=== PATIENT | male | born 1970 | race Caucasian/White ===

== ENCOUNTER 2021-04-11 17:34 | Inpatient (IN) ==
[2021-04-11] MEDS ORDERED: SODIUM CHLORIDE 0.9% 1000ML 2,000 ML IV ONE (18:11)
[2021-04-11] MEDS ORDERED: ACETAMINOPHEN 1,000 MG/100 ML VIAL IV STA (18:11)
[2021-04-11] MEDS ORDERED: guaiFENesin 600 MG TABCR PO STA (18:11)
[2021-04-11] MEDS ORDERED: dexAMETHasone**PF** 10 MG/ML VIAL IV ONE (18:11)
[2021-04-11] MEDS ORDERED: IPRATROPIUM BROMIDE/ALBUTEROL respimat INH INH STA (18:11)
--- NOTE | 2021-04-11 18:15 | Emergency Department Note ---
Impression & Plan Pneumonia due to COVID-19 virus, Hypoxia, Acute on chronic renal insufficiency ED Provider Note NAME: STACEY EDEN AGE: 51 SEX: M ARRIVES VIA: Walk-In INFORMANT: Patient, ED PROVIDER(S): Tj Davis MD CHIEF COMPLAINT: Shortness of breath. PLAN: Disposition: Admit MEDICAL DECISION MAKING: The patient is a pleasant 51-year-old gentleman presents to the department referred from [facility] urgent care after he presented there with cough congestion shortness of breath and feverishness for the past 5 days or so in the setting of being exposed to a Covid 19+ individual on 04/01. He was tested for COVID-19 but did not get the result. He had an ambulatory trial with a pulse ox that went down below 90% per the patient's report. He reports shortness of breath, intermittent nausea, loose stools. He denies chest pain, abdominal pain, headache. On arrival the patient is fatigued and uncomfortable no acute distress, afebrile with heart in the 100s, O2 saturation 90% on room air and vital signs otherwise stable. He appears clinically dry. He has a scant intermittent wheeze and is otherwise clear. EKG without overt acute ischemia. CXR shows patchy hazy airspace opacities within the bilateral mid lung zones which favors a viral pneumonia. WBC wnl but with lymphopenia to 0.4. H/H wnl. Platelets 94K. Chemistry without acidosis. Potassium 2.8 and otherwise electrolytes unremarkable. Cr. 2.27 increased from recent of 1.5 in [facility] records. LFTs with mild elevations and nonspecific. Troponin negative/undetectable. Lipase wnl. Covid-19 PCR is positive. Upon re-evaluation the patient did feel somewhat improved following IVF hydration, apap, dexamethasone, guaifenesin, Combivent. However given mild hypoxia and acute on chronic renal insufficiency agrees with plan for admission. Case was discussed with Dr. Garcia, [facility] hospitalist, who will evaluate the patient for admission. Triage Nursing notes reviewed and agree them. Prior medical records reviewed Vital Signs: reviewed and remarkable for tachycardia, hypoxia. Differential diagnosis: Reactive airway disease, pneumonia, pneumothorax, COPD, CHF, infections, cardiac ischemia, pulmonary embolism, musculoskeletal, gastrointestinal, as well as other pathologies. ER treatment provided: See below. Diagnostics interpreted by me: ECG: NSR, 94 bpm, no ectopy, no overt ST elevation or depression. Cardiac Monitoring: An order for continuous cardiac monitoring was placed and demonstrated NSR, 94 bpm, no ectopy. Laboratory studies: See below Imaging studies: See below Consultation(s): Case was discussed with Dr. Garcia, [facility] hospitalist, who will evaluate the patient for admission. HPI: The patient is a pleasant 51-year-old gentleman presents to the department referred from [facility] urgent care after he presented there with cough congestion shortness of breath and feverishness for the past 5 days or so in the setting of being exposed to a Covid 19+ individual on 04/01. He was tested for COVID-19 but did not get the result. He had an ambulatory trial with a pulse ox that went down below 90% per the patient's report. He reports shortnes s of breath, intermittent nausea, loose stools. He denies chest pain, abdominal pain, headache. ROS: See above HPI for pertinent positives & negatives. A total of 10 systems reviewed and were otherwise negative. PAST MEDICAL HISTORY:See Below PAST SURGICAL HISTORY:See Below FAMILY HISTORY:See Below SOCIAL HISTORY:See Below HOME MEDICATIONS:See Below ALLERGIES:See Below VITALS:See Below PHYSICAL EXAMINATION: GENERAL: Awake, alert, fatigued-appearing, in no distress HENT: Normocephalic, atraumatic. Oropharynx with dry mucous membranes and otherwise unremarkable. EYES: Normal conjunctiva. Sclera non-icteric. NECK: Supple. No nuchal rigidity. FROM. No JVD. RESPIRATORY: Scant intermittent wheeze and otherwise clear to auscultation. CARDIAC: Tachycardic rate, normal rhythm. Extremities warm and well perfused. Pulses equal. ABDOMEN: Soft, non-distended. No tenderness to palpation. No rebound or guarding. No masses. RECTAL: Deferred. MUSCULOSKELETAL: Chest examination reveals no tenderness. The back is symmetrical on inspection without obvious abnormality. There is no CVA tenderness to palpation. No joint edema. LOWER EXTREMITIES: Calves are equal size bilaterally and non-tender. No edema. No discoloration. NEURO: Normal sensorium. No sensory or motor deficits noted. SKIN: No rash or jaundice noted. Tj Davis MD Past Med/Surg History Medical History CKD (chronic kidney disease) Social History Smoking Status: Never smoker Second Hand Exposure: No; Do You Dip or Chew Tobacco: Yes; Tobacco Cessation Education Requested by Patient: No Hx Alcohol Use: No Hx Substance Use: No Preferred Language: Uruguayan Communication Ability: Effective Yarn Weigher Required: No Beliefs That Will Affect Care: None Current Living Situation: Family Other Information That Helps Us Care for You: No Feels Safe at Home: Yes Safety Concerns: Feels Safe At This Time Assistive Devices: Glasses Allergies Allergies Allergy/AdvReac Type Severity Reaction Status Date / Time Unable to Assess Allergy Unverified 04/11/21 20:42 Home Meds Home Medications Medication Instructions Recorded Confirmed hydrochlorothiazide 25 mg tablet 25 mg PO DAILY 04/11/21 04/11/21 lisinopril 40 mg tablet 40 mg PO DAILY 04/11/21 04/11/21 Results & Data (ED) Vital Signs Vital Signs - 24 hr 04/11/21 17:43 04/11/21 18:35 04/11/21 18:54 Temperature 37.2 C Temperature Source Temporal Artery Scan Pulse Rate 101 H 90 Pulse Rate from SpO2 Sensor Respiratory Rate 20 Respiratory Effort / Characteristics Non-Labored Spontaneous Respiratory Depth Normal Blood Pressure 102/67 Blood Pressure Mean 78 Blood Pressure Position Sitting Pulse Oximetry 91 90 90 Oxygen Delivery Method Room Air Room Air Room Air Oxygen Flow Rate Sepsis Recent Fever Within 48 Hours Yes Sepsis New/Unexplained Change in Mental Status N/A Sepsis Action Taken by Nursing No Action Required 04/11/21 19:00 04/11/21 19:30 04/11/21 20:00 Temperature Temperature Source Pulse Rate 92 H 86 84 Pulse Rate from SpO2 Sensor 92 H 86 85 Respiratory Rate 23 21 22 Respiratory Effort / Characteristics Respiratory Depth Blood Pressure 105/66 114/64 103/60 Blood Pressure Mean 79 80 74 Blood Pressure Position Pulse Oximetry 90 90 91 Oxygen Delivery Method Oxygen Flow Rate Sepsis Recent Fever Within 48 Hours Sepsis New/Unexplained Change in Mental Status Sepsis Action Taken by Nursing 04/11/21 20:30 04/11/21 21:00 04/11/21 21:30 Temperature Temperature Source Pulse Rate 81 80 76 Pulse Rate from SpO2 Sensor 81 80 76 Respiratory Rate 18 18 18 Respiratory Effort / Characteristics Respiratory Depth Blood Pressure 114/63 126/75 120/70 Blood Pressure Mean 80 92 86 Blood Pressure Position Pulse Oximetry 90 94 92 Oxygen Delivery Method Nasal Cannula Nasal Cannula Nasal Cannula Oxygen Flow Rate 2 2 3 Sepsis Recent Fever Within 48 Hours Sepsis New/Unexplained Change in Mental Status Sepsis Action Taken by Nursing 04/11/21 22:00 04/11/21 22:30 04/11/21 22:33 Temperature 36.5 C Temperature Source Oral Pulse Rate 70 69 Pulse Rate from SpO2 Sensor 71 70 Respiratory Rate 19 20 Respiratory Effort / Characteristics Respiratory Depth Blood Pressure 119/82 119/69 Blood Pressure Mean 94 85 Blood Pressure Position Pulse Oximetry 94 94 Oxygen Delivery Method Nasal Cannula Nasal Cannula Oxygen Flow Rate 3 3 Sepsis Recent Fever Within 48 Hours Sepsis New/Unexplained Change in Mental Status Sepsis Action Taken by Nursing 04/11/21 23:00 04/11/21 23:30 04/12/21 00:00 Temperature Temperature Source Pulse Rate 69 62 57 L Pulse Rate from SpO2 Sensor 68 63 57 L Respiratory Rate 15 16 15 Respiratory Effort / Characteristics Respiratory Depth Blood Pressure 110/69 116/74 99/63 L Blood Pressure Mean 82 88 75 Blood Pressure Position Pulse Oximetry 93 92 93 Oxygen Delivery Method Nasal Cannula Nasal Cannula Nasal Cannula Oxygen Flow Rate 3 3 3 Sepsis Recent Fever Within 48 Hours Sepsis New/Unexplained Change in Mental Status Sepsis Action Taken by Nursing 04/12/21 00:30 Temperature Temperature Source Pulse Rate 69 Pulse Rate from SpO2 Sensor 68 Respiratory Rate 24 Respiratory Effort / Characteristics Respiratory Depth Blood Pressure 103/68 Blood Pressure Mean 79 Blood Pressure Position Pulse Oximetry 95 Oxygen Delivery Method Nasal Cannula Oxygen Flow Rate 3 Sepsis Recent Fever Within 48 Hours Sepsis New/Unexplained Change in Mental Status Sepsis Action Taken by Nursing Laboratory Data Attestation: I reviewed the patient's lab results. Result diagrams: 04/11/21 18:40 04/11/21 18:40 Lab Results 04/11/21 04/11/21 04/11/21 Range/Units 18:40 18:40 18:40 WBC 7.10 (4.8-10.8) K/uL RBC 5.34 (4.7-6.1) M/uL Hgb 16.4 (14.0-18.0) g/dL Hct 44.9 (42-52) % MCV 84.1 (80-100) fL MCH 30.7 (25-34) pg MCHC 36.5 H (32-36) g/dL RDW Std Deviation 39.3 (36.4-46.3) fL RDW Coeff of Ruddy 13.1 (11.5-14.5) % Plt Count 94 L (130-400) K/uL MPV 11.1 H (7.4-10.4) fL Immature Gran % (Auto) 0.1 % Neut % (Auto) 88.1 % Lymph % (Auto) 5.6 % Osborne % (Auto) 6.1 % Eos % (Auto) 0.0 % Baso % (Auto) 0.1 % Neut # (Auto) 6.25 (1.4-6.5) K/uL Lymph # (Auto) 0.40 L (1.2-3.4) K/uL Osborne # (Auto) 0.43 (0.11-0.59) K/uL Eos # (Auto) 0.00 (0-0.5) K/uL Baso # (Auto) 0.01 (0-0.2) K/uL Immature Gran # (Auto) 0.01 (0.00-0.02) K/uL Platelet Estimate Decreased L (Normal) Sodium 132 L (136-145) mmol/L Potassium 2.8 L (3.5-5.1) mmol/L Chloride 96 L (98-107) mmol/L Carbon Dioxide 27 (21-32) mmol/L Anion Gap 9.0 (3-11) BUN 25 H (7-18) mg/dl Creatinine 2.27 H (0.6-1.4) mg/dl Est Cr Clr Drug Dosing 59.4 ml/min Est GFR ( Amer) 36.8 ml/min Est GFR (Non-Af Amer) 31.8 ml/min BUN/Creatinine Ratio 10.9 (10-20) Glucose 160 H (70-99) mg/dl Calcium 8.0 L (8.5-10.1) mg/dl Phosphorus 2.2 L (2.5-4.9) mg/dl Magnesium 1.8 (1.8-2.4) mg/dl Total Bilirubin 1.5 H (0.2-1) mg/dl Direct Bilirubin 0.9 H (0-0.2) mg/dl AST 60 H (15-37) U/L ALT 46 (12-78) U/L Alkaline Phosphatase 79 (45-117) U/L Troponin I < 0.015 (0-0.045) ng/ml Total Protein 6.4 (6.4-8.2) gm/dl Albumin 3.2 L (3.4-5.0) gm/dl Globulin 3.2 (2.5-4.0) gm/dl Albumin/Globulin Ratio 1.0 (0.9-2) Lipase 164 (73-393) U/L COVID-19 Eval Order Covid19 at [facility] SARS-CoV-2 (PCR) (Negative) 04/11/21 Range/Units 18:40 WBC (4.8-10.8) K/uL RBC (4.7-6.1) M/uL Hgb (14.0-18.0) g/dL Hct (42-52) % MCV (80-100) fL MCH (25-34) pg MCHC (32-36) g/dL RDW Std Deviation (36.4-46.3) fL RDW Coeff of Ruddy (11.5-14.5) % Plt Count (130-400) K/uL MPV (7.4-10.4) fL Immature Gran % (Auto) % Neut % (Auto) % Lymph % (Auto) % Osborne % (Auto) % Eos % (Auto) % Baso % (Auto) % Neut # (Auto) (1.4-6.5) K/uL Lymph # (Auto) (1.2-3.4) K/uL Osborne # (Auto) (0.11-0.59) K/uL Eos # (Auto) (0-0.5) K/uL Baso # (Auto) (0-0.2) K/uL Immature Gran # (Auto) (0.00-0.02) K/uL Platelet Estimate (Normal) Sodium (136-145) mmol/L Potassium (3.5-5.1) mmol/L Chloride (98-107) mmol/L Carbon Dioxide (21-32) mmol/L Anion Gap (3-11) BUN (7-18) mg/dl Creatinine (0.6-1.4) mg/dl Est Cr Clr Drug Dosing ml/min Est GFR ( Amer) ml/min Est GFR (Non-Af Amer) ml/min BUN/Creatinine Ratio (10-20) Glucose (70-99) mg/dl Calcium (8.5-10.1) mg/dl Phosphorus (2.5-4.9) mg/dl Magnesium (1.8-2.4) mg/dl Total Bilirubin (0.2-1) mg/dl Direct Bilirubin (0-0.2) mg/dl AST (15-37) U/L ALT (12-78) U/L Alkaline Phosphatase (45-117) U/L Troponin I (0-0.045) ng/ml Total Protein (6.4-8.2) gm/dl Albumin (3.4-5.0) gm/dl Globulin (2.5-4.0) gm/dl Albumin/Globulin Ratio (0.9-2) Lipase (73-393) U/L COVID-19 Eval Order SARS-CoV-2 (PCR) POSITIVE A* (Negative) Administered Medications Potassium Phosphate 24 mmol/ (Sodium Chloride) 508 mls @ 125 mls/hr IV 0130 ONE Stop: 04/12/21 05:33 Last Admin: 04/12/21 01:32 Dose: 125 mls/hr Documented by: [id number] Sodium Chloride (Nss 1000ml) 1,000 mls @ 100 mls/hr IV .Q10H WILDA Stop: 04/12/21 12:12 Last Admin: 04/12/21 02:47 Dose: 100 mls/hr Documented by: [id number] Discontinued Medications Albuterol (Ipratropium Campbell/Albuterol Respimat Inh) 2 puffs INH NOW STA Stop: 04/11/21 18:12 Last Admin: 04/11/21 18:43 Dose: 2 puffs Documented by: [id number] Dexamethasone Sodium Phosphate (DexamethasonePf 10 Mg/Ml Vial) 10 mg IV NOW ONE Stop: 04/11/21 18:12 Last Admin: 04/11/21 18:43 Dose: 10 mg Documented by: [id number] Guaifenesin (Guaifenesin 600 Mg Tabcr) 600 mg PO NOW STA Stop: 04/11/21 18:12 Last Admin: 04/11/21 18:44 Dose: 600 mg Documented by: [id number] Acetaminophen (Ofirmev) 1,000 mg in 100 mls @ 400 mls/hr IV NOW STA Stop: 04/11/21 18:25 Last Infusion: 04/11/21 20:24 Dose: 0 mls/hr Documented by: [id number] Admin: 04/11/21 18:43 Dose: 400 mls/hr Documented by: [id number] Sodium Chloride (Nss 1000ml) 2,000 mls @ 999 mls/hr IV .Q2H1M ONE Stop: 04/11/21 20:11 Last Infusion: 04/11/21 20:26 Dose: 0 mls/hr Documented by: [id number] Admin: 04/11/21 18:43 Dose: 999 mls/hr Documented by: [id number] Potassium Chloride (K Dash / Wtr) 10 meq in 100 mls @ 100 mls/hr IV Q1H WILDA Stop: 04/11/21 22:44 Last Infusion: 04/11/21 23:26 Dose: 0 mls/hr Documented by: [id number] Admin: 04/11/21 22:33 Dose: 100 mls/hr Documented by: [id number] Infusion: 04/11/21 22:22 Dose: 100 mls/hr Documented by: [id number] Admin: 04/11/21 21:22 Dose: 100 mls/hr Documented by: [id number] Remdesivir 200 mg/ Sodium (Chloride) 250 mls @ 125 mls/hr IV ONE STA; Protocol Stop: 04/12/21 02:39 Last Admin: 04/12/21 02:47 Dose: 125 mls/hr Documented by: [id number] Potassium Chloride (Potassium Chloride Crtab 20 Meq Tabcr) 40 meq PO NOW STA Stop: 04/12/21 01:07 Last Admin: 04/12/21 01:17 Dose: 40 meq Documented by: [id number] Potassium Phosphate (Potassium Phos 3 Mmol/1 Ml Infusion) 24 mmol IV NOW STA Stop: 04/12/21 01:08 Last Admin: 04/12/21 01:32 Dose: Not Given Documented by: [id number] Imaging Data Radiologist's Impression: Chest X-Ray 04/11/21 18:10 XR chest 1V portable HISTORY: Atypical Chest Pain COMPARISON: None. FINDINGS: There are low lung volumes. The cardiac silhouette is mildly enlarged. There is mild diffuse interstitial thickening with patchy hazy airspace opacities within the bilateral midlung zones. This likely represents a viral pneumonia. IMPRESSION: 1. Patchy hazy airspace opacities within the bilateral mid lung zones which favors a viral pneumonia. 2. Mild cardiomegaly. ACT 112: Negative or not required by law. Electronically signed by: Pepe Ye M.D. 04/11/2021 6:34 PM Discharge Plan Visit Data Chief Complaint: Respiratory Problems Stated Complaint: RESPIRATORY PROBLEMS, JOSE. [facility] REFERRED ED Provider: Tj Davis Discharge Problem: Pneumonia due to COVID-19 virus, Hypoxia, Acute on chronic renal insufficiency Patient Disposition: Admitted As Inpatient Discharge Instructions Interventions: ED Discharge Assessment Last Done: 04/12/21 01:18
--- NOTE | 2021-04-11 18:35 | XRay Report ---
XR chest 1V portable HISTORY: Atypical Chest Pain COMPARISON: None. FINDINGS: There are low lung volumes. The cardiac silhouette is mildly enlarged. There is mild diffus e interstitial thickening with patchy hazy airspace opacities within the bilateral midlung zones. Thi s likely represents a viral pneumonia. IMPRESSION: 1. Patchy hazy airspace opacities within the bilateral mid lung zones which favors a viral pneumonia. 2. Mild cardiomegaly. ACT 112: Negative or not required by law. Electronically signed by: Pepe Ye M.D. 04/11/2021 6:34 PM
[2021-04-11 19:30] LABS: Alanine Aminotransferase 46 U/L (12-78); Albumin Level 3.2 gm/dl (3.4-5.0); Aspartate Aminotransferase 60 U/L (15-37); BUN Creatinine Ratio 10.9 (10-20); Bilirubin Direct 0.9 mg/dl (0-0.2); Blood Urea Nitrogen 25 mg/dl (7-18); Carbon Dioxide 27 mmol/L (21-32); Chloride 96 mmol/L (98-107); Creatinine Clr Calc Pharmacy 59.4 ml/min; Est GFR (African American) 36.8 ml/min; Est GFR (Non-African American) 31.8 ml/min; Glucose 160 mg/dl (70-99); Lipase 164 U/L (73-393); Magnesium 1.8 mg/dl (1.8-2.4); Potassium 2.8 mmol/L (3.5-5.1); Sodium 132 mmol/L (136-145)
[2021-04-11 19:33] LABS: Alkaline Phosphatase 79 U/L (45-117); Bilirubin,Total 1.5 mg/dl (0.2-1); Globulin 3.2 gm/dl (2.5-4.0); Phosphorus 2.2 mg/dl (2.5-4.9); Total Protein 6.4 gm/dl (6.4-8.2); Troponin I < 0.015 ng/ml (0-0.045)
[2021-04-11 19:49] LABS: Basophils # (auto) 0.01 K/uL (0-0.2); Basophils % (auto) 0.1 %; Hematocrit (blood only) 44.9 % (42-52); Hemoglobin 16.4 g/dL (14.0-18.0); Immature Granulocytes # (auto) 0.01 K/uL (0.00-0.02); Immature Granulocytes % (auto) 0.1 %; Lymphocytes % (auto) 5.6 %; Mean Corpuscular Hemoglobin 30.7 pg (25-34); Mean Corpuscular Hgb Conc 36.5 g/dL (32-36); Mean Corpuscular Volume 84.1 fL (80-100); Mean Platelet Volume 11.1 fL (7.4-10.4); Monocytes # (auto) 0.43 K/uL (0.11-0.59); Monocytes % (auto) 6.1 %; Neutrophils # (auto) 6.25 K/uL (1.4-6.5); Neutrophils % (auto) 88.1 %; Platelet Count 94 K/uL (130-400); Platelet Estimate Decreased (Normal); RDW Coefficient of Variation 13.1 % (11.5-14.5); RDW Standard Deviation 39.3 fL (36.4-46.3); Red Blood Count 5.34 M/uL (4.7-6.1)
[2021-04-11] MEDS: POTASSIUM CHLORIDE / WTR 10 MEQ/100 ML PLCT IV SCH ×2 (21:22→22:33)
[2021-04-12] MEDS ORDERED: REMDESIVIR 200 MG in SODIUM CHLORIDE 0.9% 210 ML IV STA (00:40)
[2021-04-12] MEDS ORDERED: POTASSIUM CHLORIDE CRTAB 20 MEQ TABCR PO STA (01:06)
[2021-04-12] MEDS ORDERED: POTASSIUM PHOS 3 MMOL/1 ML INFUSION IV STA (01:07)
[2021-04-12] MEDS ORDERED: POTASSIUM PHOSPHATE 24 MMOL in SODIUM CHLORIDE 0.9% 500 ML IV ONE (01:30)
[2021-04-12] MEDS ORDERED: ALBUTEROL HFA 8 GM INHALER INH PRN (02:13)
[2021-04-12] MEDS ORDERED: SODIUM CHLORIDE 0.9% 1000ML 1,000 ML IV SCH (02:13)
[2021-04-12] MEDS ORDERED: ACETAMINOPHEN 325 MG TAB PO PRN (02:13)
[2021-04-12] MEDS ORDERED: hydrALAZINE HCL 20 MG/ML VIAL IV PRN (02:13)
[2021-04-12] MEDS ORDERED: NITROGLYCERIN SL 0.4 MG/TAB TAB SL PRN (02:13)
[2021-04-12] MEDS ORDERED: ONDANSETRON INJ 2 MG/ML 2 ML VIAL IV PRN (02:13)
--- NOTE | 2021-04-12 03:07 | History and Physical Report ---
DATE OF ADMISSION: 04/12/2021. CHIEF COMPLAINT: Shortness of breath, COVID pneumonia. HISTORY OF PRESENT ILLNESS: This is a 51-year-old male with past medical history significant for hypertension, morbid obesity, chronic kidney disease stage III, chews tobacco, history of Lyme disease, who presents with shortness of breath and found to be COVID positive. The patient states he is having symptoms since about last Friday, about 1 week ago, with fever, cough, feeling weak, poor appetite. Denies any shortness of breath or chest pain. No headaches, no abdominal pain, no nausea, no diarrhea or constipation. He went to [facility] on 04/11/2021 and he seems to be exposed because his daughter had COVID . In the [facility], he was saturating 88% to 99% and he was advised to come to the ER. In the ER, he was saturating in the low 90s and on oxygen 3 liters, he is saturating okay. He is hemodynamically stable. Afebrile here. Denies any blurred visions, no earache, no runny nose, no sore throat, no difficulty swallowing. No loss of sense of smell or taste. Normal bladder movements. ALLERGIES: No known drug allergies. PAST MEDICAL HISTORY: As mentioned above. PAST SURGICAL HISTORY: None. MEDICATIONS: The patient is on lisinopril 40 mg daily, hydrochlorothiazide 25 mg p.o. daily. FAMILY HISTORY: Mother of lung cancer; father of myocardial infarction, multiple strokes, hypertension, diabetes; brother has diabetes. SOCIAL HISTORY: , no smoking. Denies any alcohol use. No drug use. REVIEW OF SYSTEMS: As per HPI. Rest of the review of systems is negative. PHYSICAL EXAMINATION: GENERAL: The patient is morbidly obese, not in acute distress. VITAL SIGNS: Temperature 36.5, pulse 69, respiratory rate 24, blood pressure 103/68, oxygen was 90% on room air, currently 95% on 3 liters. HEENT: Pupils equal, round and reactive to light. Oral mucosa moist. NECK: No JVD, no neck masses. CARDIOVASCULAR: S1 and S2 heard. Regular rate and rhythm. No murmur, no gallop. RESPIRATORY SYSTEM: Normal AP diameter. No accessory muscle use. No wheezing, no crackles. ABDOMEN: Soft, bowel sounds present, nontender, no distention. CENTRAL NERVOUS SYSTEM: Cranial nerves II-XII grossly intact, nonfocal. EXTREMITIES: No edema, no erythema. LABORATORY DATA: WBC 7.1, hemoglobin 16.4, hematocrit 44.9, platelets 94. Sodium 132, potassium 2.8, chloride 96, bicarbonate 27, BUN 25, creatinine 2.27. Serum glucose 160, calcium 8, phosphorus 2.2, magnesium 1.8, total bilirubin 1.5, direct bilirubin 0.9, AST 60, ALT 46, alkaline phosphatase 79. Troponin I less than 0.015. Lipase 162. SARS-CoV-2 PCR positive. IMAGING DATA: Chest x-ray: Patchy hazy airspace opacities within the bilateral mid lung zone, which favors a viral pneumonia. EKG: Normal sinus rhythm at a rate of 94, no previous EKG available. ASSESSMENT AND PLAN: This is a 51-year-old male who presents with COVID pneumonia and hypoxia. 1. COVID pneumonia: Oxygen saturation in low 90s on room air, on 3 L saturating fine at 95%. Meets criteria for remdesivir and steroids. Will continue and follow the remdesivir labs. Please follow the CRP, D-dimer, ferritin, and troponin levels in the a.m. Robitussin p.r.n. Closely monitor in the med tele. 2. Acute kidney injury on chronic kidney disease stage III: Baseline creatinine around 1.4-1.5, presently with creatinine of 2.2. Holding his lisinopril and holding the hydrochlorothiazide. Getting gentle fluids. Will follow the repeat labs in a.m. 3. Hypokalemia: Will replace. 4. Hypophosphatemia: Will replace. 5. Mild elevation of total bilirubin: Will follow the repeat labs.If persistent elevation will do liver ultrasound. 6. Hypertension: Holding his lisinopril and hydrochlorothiazide. Will place on IV hydralazine p.r.n. and monitor. 7. Morbid obesity: Needs counseling.. Will also follow HbA1c levels in the a.m. 8. Thrombocytopenia: His platelets were okay in 2013, could be due to ongoing illness. Will follow the repeat labs. 9.. Deep venous thrombosis prophylaxis: Placed on Lovenox 40 mg b.i.d. as the patient is morbidly obese. Closely monitor for any bleeding and if his platelets further drop down, will hold the Lovenox. DISPOSITION: Will closely monitor in the med tele. Level 1 full code. Job ID: [id number]
[2021-04-12] MEDS: SODIUM CHLORIDE 0.9% 10ML FLUSH IV SCH (05:06)
[2021-04-12 06:06] LABS: Hemoglobin 15.8 g/dL (14.0-18.0); Immature Granulocytes # (auto) 0.01 K/uL (0.00-0.02); Immature Granulocytes % (auto) 0.2 %; Lymphocytes # (auto) 0.37 K/uL (1.2-3.4); Lymphocytes % (auto) 8.5 %; Mean Corpuscular Hemoglobin 31.4 pg (25-34); Mean Corpuscular Hgb Conc 36.7 g/dL (32-36); Mean Corpuscular Volume 85.5 fL (80-100); Mean Platelet Volume 11.2 fL (7.4-10.4); Monocytes # (auto) 0.21 K/uL (0.11-0.59); Monocytes % (auto) 4.8 %; Neutrophils # (auto) 3.77 K/uL (1.4-6.5); Neutrophils % (auto) 86.5 %; Platelet Count 100 K/uL (130-400); RDW Coefficient of Variation 13.4 % (11.5-14.5); Red Blood Count 5.03 M/uL (4.7-6.1); White Blood Count 4.36 K/uL (4.8-10.8)
[2021-04-12] MEDS: ENOXAPARIN INJ 40 MG/0.4 ML SYR SQ SCH ×2 (06:13→17:33)
[2021-04-12 06:38] LABS: Echinocytes 1+
[2021-04-12 06:45] LABS: D Dimer 980 ug/L FEU (0-500)
[2021-04-12 06:50] LABS: Alanine Aminotransferase 43 U/L (12-78); Albumin Level 2.8 gm/dl (3.4-5.0); Alkaline Phosphatase 73 U/L (45-117); Aspartate Aminotransferase 52 U/L (15-37); BUN Creatinine Ratio 12.2 (10-20); Bilirubin Direct 0.7 mg/dl (0-0.2); Bilirubin,Total 1.2 mg/dl (0.2-1); Blood Urea Nitrogen 32 mg/dl (7-18); Calcium 7.3 mg/dl (8.5-10.1); Carbon Dioxide 29 mmol/L (21-32); Chloride 101 mmol/L (98-107); Creatinine Clr Calc Pharmacy 51.9 ml/min; Est GFR (African American) 31.2 ml/min; Est GFR (Non-African American) 26.9 ml/min; Ferritin 1726.6 ng/ml (8-388); Glucose 222 mg/dl (70-99); Magnesium 2.2 mg/dl (1.8-2.4); Phosphorus 3.5 mg/dl (2.5-4.9); Potassium 4.4 mmol/L (3.5-5.1); Sodium 134 mmol/L (136-145); Total Protein 6.1 gm/dl (6.4-8.2); Troponin I < 0.015 ng/ml (0-0.045)
[2021-04-12] MEDS ORDERED: PHARMACY GLYCEMIC MGMT CONSULT PRN (15:32)
[2021-04-12] MEDS ORDERED: INSULIN HUMAN NPH SC ONE (15:45)
--- NOTE | 2021-04-12 16:39 | Hospitalist Progress Note ---
Date of Service April 12, 2021 Assessment & Plan (1) Pneumonia due to COVID-19 virus: Plan: Doing well clinically, requiring minimal oxygen today. Cont remdesivir (apparently meets GFR cutoff) and daily dexamethasone). Tolerating PO, cont supportive care. Eleveated D-dimer likely related to infection (acute phase reactact). Low risk for PE/DVT. (2) Acute on chronic renal insufficiency: Plan: Acute worsening of creatinine-Stage III CKD at baseline--base creat from 2017 is 1.5. (3) Obesity: Plan: Lifestyle modifications recommended. (4) DVT prophylaxis: Plan: Lovenox Full Code Dispo-to home when improved and off oxygen. Selena Ramires DO [facility]ist Admission and Anticipated Discharge Date Admission Date: April 12, 2021 Subjective 51 yo M with covid pneumonia Still requiring min oxygen but feels great denies any headaches, SOB, chest pain, diarrhea or other issues doing well on the steroids and antiviral therapy. ambulating, tolerating PO Review of Systems Review of Systems: All systems were reviewed and negative except as indicated in HPI above. Physical Exam Physical Exam: CONSTITUTIONAL: obese, vitals as above, generally well- appearing EYES: normal conjunctivae, no scleral icterus ENT: external ear and nose normal, MMM RESPIRATORY: clear to auscultation bilaterally, no crackles, rales or wheezes, normal respiratory effort CARDIOVASCULAR: regular rate and rhythm, S1 and 2 heard without murmurs, gallops or rubs, no JVD, no peripheral edema GASTROINTESTINAL: soft, nontender, nondistended, no guarding MUSCULOSKELETAL: strength 5/5 throughout, head is normocephalic and atraumatic, ambulatory SKIN: warm and dry NEUROLOGIC: CN 2-12 grossly intact, no sensory deficit, normal cognition, normal speech, no tremor PSYCHIATRIC: alert cooperative and oriented to person, place and time. Results & Data Results & Data ([facility]) Vital Signs (Past 12 Hours) Vital Signs Temp Pulse Pulse Resp BP Pulse Ox 04/12/21 16:00 36.9 C 84 18 121/85 96 04/12/21 15:18 80 04/12/21 11:38 36.6 C 76 18 115/71 95 04/12/21 07:36 36.4 C L 68 25 H 123/76 95 04/12/21 07:00 62 Laboratory Results Short CBC 08/18/21 08/19/21 Range/Units 18:40 05:37 WBC 7.10 4.36 L (4.8-10.8) K/uL Hgb 16.4 15.8 (14.0-18.0) g/dL Hct 44.9 43.0 (42-52) % Plt Count 94 L 100 L (130-400) K/uL BMP 04/11/21 04/12/21 18:40 05:37 Sodium 132 L 134 L Potassium 2.8 L 4.4 D Chloride 96 L 101 Carbon Dioxide 27 29 BUN 25 H 32 H Creatinine 2.27 H 2.60 H D Glucose 160 H 222 H Calcium 8.0 L 7.3 L Cardiac Enzymes 04/11/21 04/12/21 Range/Units 18:40 05:37 Troponin I < 0.015 < 0.015 (0-0.045) ng/ml Liver Function 04/11/21 04/12/21 Range/Units 18:40 05:37 Total Bilirubin 1.5 H 1.2 H (0.2-1) mg/dl Direct Bilirubin 0.9 H 0.7 H (0-0.2) mg/dl AST 60 H 52 H (15-37) U/L ALT 46 43 (12-78) U/L Alkaline Phosphatase 79 73 (45-117) U/L Albumin 3.2 L 2.8 L (3.4-5.0) gm/dl Medications Administered Current Inpatient Medications Acetaminophen (Acetaminophen 325 Mg Tab) 650 mg PO Q4H PRN PRN Reason: Pain or Fever Stop: 05/12/21 02:12 Albuterol (Albuterol Hfa 8 Gm Inhaler) 2 puffs INH Q4H PRN PRN Reason: Shortness Of Breath Or Wheezin Stop: 05/12/21 02:12 Enoxaparin Sodium (Enoxaparin Inj 40 Mg/0.4 Ml Syr) 40 mg SQ Q12H WILDA Stop: 05/12/21 05:59 Last Admin: 04/12/21 06:13 Dose: 40 mg Documented by: Guaifenesin/Codeine Phosphate (Guaifenesin/Codeine 100mg/10mg 5ml Udc) 5 ml PO Q6H PRN PRN Reason: Cough Stop: 05/12/21 02:12 Hydralazine HCl (Hydralazine Hcl 20 Mg/Ml Vial) 5 mg IV Q6H PRN PRN Reason: Hypertension Stop: 05/12/21 02:12 Remdesivir 100 mg/ Sodium (Chloride) 250 mls @ 250 mls/hr IV Q24H [facility]; Protocol Stop: 04/16/21 20:59 Dexamethasone 6 mg/ Syringe 1.5 mls @ 1 mls/min IV DAILY [facility] Stop: 04/22/21 19:59 Insulin Aspart (Insulin Aspart 100 Units/Ml 3 Ml Pen) 0 units SC ACHS [facility]; Protocol Stop: 05/12/21 16:29 Insulin Aspart (Insulin Aspart 100 Units/Ml 3 Ml Pen) 0 units SC TODAY@0000,0400 [facility]; Protocol Stop: 04/13/21 04:01 Miscellaneous Information (Pharmacy Glycemic Mgmt Consult) 1 ea N/A UD PRN PRN Reason: Consult Stop: 05/12/21 15:31 Nitroglycerin (Nitroglycerin Sl 0.4 Mg/Tab Tab) 0.4 mg SL UD PRN PRN Reason: Chest Pain Stop: 05/12/21 02:12 Ondansetron HCl (Ondansetron Inj 2 Mg/Ml 2 Ml Vial) 4 mg IV Q6H PRN PRN Reason: Nausea Stop: 05/12/21 02:12 Sodium Chloride (Sodium Chloride 0.9% 10ml Flush) 30 ml IV Q24H [facility] Stop: 04/16/21 02:14 Last Admin: 04/12/21 05:06 Dose: 30 ml Documented by:
[2021-04-12] MEDS: INSULIN ASPART 100 UNITS/ML 3 ML PEN SC SCH ×2 (17:31→20:54)
[2021-04-12] MEDS: dexAMETHasone 6 MG in SYRINGE 0 ML IV SCH (20:52)
[2021-04-13] MEDS: INSULIN ASPART 100 UNITS/ML 3 ML PEN SC SCH ×6 (00:03→20:40)
[2021-04-13] MEDS: SODIUM CHLORIDE 0.9% 10ML FLUSH IV SCH ×2 (03:28→20:41)
[2021-04-13] MEDS: ENOXAPARIN INJ 40 MG/0.4 ML SYR SQ SCH ×2 (05:30→17:52)
--- NOTE | 2021-04-13 05:33 | Electrocardiogram Report ---
Test Reason : Blood Pressure : / mmHG Vent. Rate : 094 BPM Atrial Rate : 094 BPM P-R Int : 152 ms QRS Dur : 090 ms QT Int : 348 ms P-R-T Axes : 012 -03 016 degrees QTc Int : 435 ms Normal sinus rhythm Cannot rule out Inferior infarct , age undetermined Cannot rule out Anterior infarct , age undetermined Abnormal ECG No previous ECGs available Confirmed by Benjamin Busby ([id number]) on 04/13/2021 5:32:48 AM Referred By: REFERRED SELF Confirmed By:Benjamin Busby
[2021-04-13 06:38] LABS: Creatinine Clr Calc Pharmacy 69.2 ml/min; Est GFR (Non-African American) 37.9 ml/min
[2021-04-13 06:46] LABS: Phosphorus 2.7 mg/dl (2.5-4.9)
[2021-04-13] MEDS ORDERED: Nursing to Pharmacy Communication SCH (07:45)
[2021-04-13 07:47] LABS: Estimated Average Glucose 143 mg/dl; Hemoglobin A1C 6.6 % (4.5-5.6)
[2021-04-13] MEDS ORDERED: INSULIN HUMAN NPH SC ONE (09:00)
[2021-04-13] MEDS: dexAMETHasone 6 MG in SYRINGE 0 ML IV SCH (10:14)
--- NOTE | 2021-04-13 11:40 | Pharmacy Report ---
Pharmacy Glycemic Short Note 2 - Date of Service April 13, 2021 - Glycemic Short BSG Results (Last 24 hours): 04/12/21 04/12/21 04/12/21 16:23 20:46 23:57 POC Glucose 244 H 212 H 128 H 04/13/21 04/13/21 04/13/21 03:51 07:19 11:17 POC Glucose 130 H 159 H 252 H OUTPATIENT ANTIDIABETIC REGIMEN: * None * HbA1c 6.6% on 04/13/21 ASSESSMENT: * 51 yo M not on any outpatient diabetes medications admitted on 04/11 for COVID- 19. Steroids initiated which precipitated hyperglycemia. Pharmacy consulted on 04/12 * NPH initiated late in the evening therefore only started with 0.2 units/kg * Novolog initiated at weight-based severe stress estimate with two overnight checks * BSG's have improved since yesterday * Continue above regimen, but OK to increase NPH slightly now that it is being administered with dexamethasone in the AM and AM fasting BSG was above goal range PLAN FOR INPATIENT GLYCEMIC CONTROL: * Basal insulin * NPH 40 units SC with dexamethasone x1 this AM. Will re-assess tomorrow. * Bolus insulin * NovoLog per scale ACHS or Q6hrs while NPO * Goal Range: Low 110 mg/dL - High 140 mg/dL * Correction Factor: 10 mg/dL/unit * Nutritional / Prandial insulin per carb ratio of 1 unit per 4 grams CHO consumed PLAN FOR DISCHARGE: * HbA1c indicative of diabetes. Initiation of metformin when eGFR < 45 is not recommended. Patient should follow-up as an outpatient shortly after discharge to determine best outpatient option for ongoing management.
--- NOTE | 2021-04-13 18:52 | Hospitalist Progress Note ---
Date of Service April 13, 2021 Assessment & Plan (1) Pneumonia due to COVID-19 virus: (2) Acute on chronic renal insufficiency: (3) Newly diagnosed diabetes: Plan: #. Pneumonia due to COVID-19 virus Doing well clinically, requiring minimal oxygen today. Cont remdesivir 1/4 and daily dexamethasone. Tolerating PO, cont supportive care. Eleveated D-dimer likely related to infection (acute phase reactact). Low risk for PE/DVT. #. Acute on chronic renal insufficiency: Acute worsening of creatinine Stage III CKD at baseline base creat from 2017 is 1.5. Admitting creatinine 2.27, improving, continue to follow #. Newly diagnosed diabetes mellitus #. Obesity 04/13 A1c 6.6, patient endorses family member having diabetes type 2 Continue with sliding scale while inpatient Evaluate for Metformin upon discharge We will get diabetic nurse on board Patient made aware and counseled on lifestyle modification #. DVT prophylaxis: Lovenox Full Code Dispo-to home when improved and off oxygen. Admission and Anticipated Discharge Date Admission Date: April 12, 2021 Subjective Patient was lying semiupright in bed, on 2 L nasal cannula oxygen, NAD, denies acute issues overnight. He does not feel increased shortness of breath. Patient denies any fever/headache/chills/sore throat/chest pain/cough/palpitations/belly pain/other review of symptoms. Physical Exam Physical Exam: GENERAL: Alert and oriented x3. NAD, on 2l. HEENT: No pallor, no icterus. Pupils equal, round and reactive to light. Oral mucosa moist. NECK: No JVD, no neck masses. HEART: S1 and S2 heard. Regular rate and rhythm. No murmur, no gallop. RESPIRATORY SYSTEM: Normal AP diameter. No accessory muscle use. No wheezing, no crackles. ABDOMEN: Soft, bowel sounds present, nontender, no distention. CENTRAL NERVOUS SYSTEM: Alert and oriented x3. No facial droop. Speech is clear. Obeys simple commands. Moves extremities. EXTREMITIES: No edema, no erythema seen. Results & Data Results & Data ([facility]) Vital Signs (Past 12 Hours) Vital Signs Temp Pulse Pulse Resp BP Pulse Ox 04/13/21 16:00 81 04/13/21 15:03 36.4 C L 76 18 112/73 91 04/13/21 13:00 90 04/13/21 11:19 36.9 C 75 18 161/85 H 91 04/13/21 09:30 92 04/13/21 07:53 60 04/13/21 07:21 36.8 C 73 24 143/86 H 91
[2021-04-13] MEDS: REMDESIVIR 100 MG in SODIUM CHLORIDE 0.9% 230 ML IV SCH (19:46)
[2021-04-13] MEDS: guaiFENesin/CODEINE 100MG/10MG 5ML UDC PO PRN (19:55)
[2021-04-14] MEDS ORDERED: LEVALBUTEROL HCL 1.25 MG/3 ML NEB NEB PRN (03:44)
[2021-04-14] MEDS ORDERED: FUROSEMIDE 20 MG in SYRINGE 0 ML IV ONE (04:30)
[2021-04-14] MEDS: ENOXAPARIN INJ 40 MG/0.4 ML SYR SQ SCH ×2 (05:42→17:38)
[2021-04-14 06:01] LABS: Hematocrit (blood only) 43.3 % (42-52); Hemoglobin 15.3 g/dL (14.0-18.0); Mean Corpuscular Hemoglobin 30.2 pg (25-34); Mean Corpuscular Hgb Conc 35.3 g/dL (32-36); Mean Corpuscular Volume 85.4 fL (80-100); Mean Platelet Volume 10.5 fL (7.4-10.4); Platelet Count 156 K/uL (130-400); RDW Coefficient of Variation 13.1 % (11.5-14.5); RDW Standard Deviation 41.1 fL (36.4-46.3); Red Blood Count 5.07 M/uL (4.7-6.1); White Blood Count 9.44 K/uL (4.8-10.8)
[2021-04-14 06:12] LABS: Immature Granulocytes # (auto) 0.02 K/uL (0.00-0.02); Immature Granulocytes % (auto) 0.2 %; Lymphocytes # (auto) 0.29 K/uL (1.2-3.4); Lymphocytes % (auto) 3.1 %; Monocytes # (auto) 0.86 K/uL (0.11-0.59); Monocytes % (auto) 9.1 %; Neutrophils # (auto) 8.27 K/uL (1.4-6.5); Neutrophils % (auto) 87.6 %
[2021-04-14 06:37] LABS: Alanine Aminotransferase 39 U/L (12-78); Albumin Globulin Ratio 0.9 (0.9-2); Albumin Level 2.8 gm/dl (3.4-5.0); Alkaline Phosphatase 78 U/L (45-117); Aspartate Aminotransferase 47 U/L (15-37); BUN Creatinine Ratio 20.3 (10-20); Bilirubin,Total 0.9 mg/dl (0.2-1); Blood Urea Nitrogen 32 mg/dl (7-18); C Reactive Protein 5.84 mg/dl (0-0.29); Calcium 7.9 mg/dl (8.5-10.1); Carbon Dioxide 26 mmol/L (21-32); Chloride 104 mmol/L (98-107); Creatinine Clr Calc Pharmacy 86.7 ml/min; Est GFR (African American) 57.5 ml/min; Est GFR (Non-African American) 49.6 ml/min; Globulin 3.2 gm/dl (2.5-4.0); Glucose 141 mg/dl (70-99); Magnesium 2.1 mg/dl (1.8-2.4); Phosphorus 2.5 mg/dl (2.5-4.9); Potassium 3.2 mmol/L (3.5-5.1); Sodium 137 mmol/L (136-145); Troponin I < 0.015 ng/ml (0-0.045)
[2021-04-14] MEDS ORDERED: POTASSIUM CHLORIDE CRTAB 20 MEQ TABCR PO STA (06:48)
[2021-04-14 07:13] LABS: D Dimer 540 ug/L FEU (0-500)
--- NOTE | 2021-04-14 07:28 | XRay Report ---
XR chest 1V portable CLINICAL HISTORY: hypoxia COMPARISON STUDY: Chest radiograph April 11, 2021. FINDINGS: Lung volumes are normal. There is no pneumothorax or pleural effusion. Enlargement of the c ardiac silhouette is unchanged. Bilateral airspace opacities have progressed. IMPRESSION: Progression of bilateral airspace opacities which favor viral pneumonia. ACT 112: Negative or not required by law. Electronically signed by: Jaiden Alexander M.D. 04/14/2021 7:27 AM
[2021-04-14] MEDS: dexAMETHasone 6 MG in SYRINGE 0 ML IV SCH (08:16)
[2021-04-14] MEDS: INSULIN ASPART 100 UNITS/ML 3 ML PEN SC SCH ×4 (08:17→21:41)
[2021-04-14] MEDS ORDERED: INSULIN HUMAN NPH SC SCH (09:00)
[2021-04-14] MEDS: FLUTICASONE FUROATE 100MCG 14 PUFFS/INHALER INH SCH (09:15)
[2021-04-14 12:03] LABS: Echinocytes 1+
--- NOTE | 2021-04-14 15:09 | Pharmacy Report ---
Pharmacy Glycemic Short Note 2 - Date of Service April 14, 2021 - Glycemic Short BSG Results (Last 24 hours): 04/13/21 04/13/21 04/14/21 16:16 20:28 05:34 Glucose 141 H POC Glucose 184 H 147 H 04/14/21 04/14/21 07:11 11:25 Glucose POC Glucose 139 H 231 H OUTPATIENT ANTIDIABETIC REGIMEN: * None * HbA1c 6.6% on 04/13/21 ASSESSMENT: 04/14/21 * Pt has received 106 units of insulin over the past 24hrs * 40 units of basal with NPH * 66 units of bolus with NovoLog * BSGs 130-252 mg/dl * Increase NPH and tighten CR for better glycemic control 04/13/21 * 51 yo M not on any outpatient diabetes medications admitted on 04/11 for COVID- 19. Steroids initiated which precipitated hyperglycemia. Pharmacy consulted on 04/12 * NPH initiated late in the evening therefore only started with 0.2 units/kg * Novolog initiated at weight-based severe stress estimate with two overnight checks * BSG's have improved since yesterday * Continue above regimen, but OK to increase NPH slightly now that it is being administered with dexamethasone in the AM and AM fasting BSG was above goal range PLAN FOR INPATIENT GLYCEMIC CONTROL: * Basal insulin * NPH 50 units SC daily with dexamethasone * Bolus insulin * NovoLog per scale ACHS or Q6hrs while NPO * Goal Range: Low 110 mg/dL - High 140 mg/dL * Correction Factor: 10 mg/dL/unit * Nutritional / Prandial insulin per carb ratio of 1 unit per 2 grams CHO consumed PLAN FOR DISCHARGE: * HbA1c indicative of diabetes. Initiation of metformin when eGFR < 45 is not recommended. Patient should follow-up as an outpatient shortly after discharge to determine best outpatient option for ongoing management.
--- NOTE | 2021-04-14 18:15 | Hospitalist Progress Note ---
Date of Service April 14, 2021 Assessment & Plan (1) Pneumonia due to COVID-19 virus: (2) Acute on chronic renal insufficiency: (3) Newly diagnosed diabetes: Plan: #. Pneumonia due to COVID-19 virus Had acute worsening of shortness of breath around 3 AM 04/14 requiring 12 L oxygen. CXR showed worsening bilateral pneumonia. Troponin was negative. Patient successfully weaned down to 6 L by evening today. Will get pulmonology on board. Appreciate recommendation. Cont remdesivir 2/4 and daily dexamethasone. Tolerating PO, cont supportive care. Elevated D-dimer likely related to infection (acute phase reactant). Low risk for PE/DVT. #. Acute on chronic renal insufficiency: Acute worsening of creatinine Stage III CKD at baseline base creat from 2017 is 1.5. Admitting creatinine 2.27, improving, continue to follow Creatinine close to baseline. #. Newly diagnosed diabetes mellitus #. Obesity 04/13 A1c 6.6, patient endorses family member having diabetes type 2 Continue with sliding scale while inpatient Evaluate for Metformin upon discharge when his renal function reaches his baseline. patient educator consulted Patient made aware and counseled on lifestyle modification #. DVT prophylaxis: Lovenox Full Code Dispo-to home when improved and off oxygen. Admission and Anticipated Discharge Date Admission Date: April 12, 2021 Subjective Patient was sitting up in chair, on 6 L nasal cannula oxygen, NAD, Overnight patient was short of breath and required 12 L nasal cannula oxygen. Patient denies chest pain/palpitation. Patient states improvement in his cough and color of the sputum. Patient denies any fever/headache/chills/sore throat/chest pain/palpitations/belly pain/other review of symptoms. Physical Exam Physical Exam: GENERAL: Alert and oriented x3. NAD, on 6l. HEENT: No pallor, no icterus. Pupils equal, round and reactive to light. Oral mucosa moist. NECK: No JVD, no neck masses. HEART: S1 and S2 heard. Regular rate and rhythm. No murmur, no gallop. RESPIRATORY SYSTEM: Normal AP diameter. No accessory muscle use. No wheezing, no crackles. ABDOMEN: Soft, bowel sounds present, nontender, no distention. CENTRAL NERVOUS SYSTEM: Alert and oriented x3. No facial droop. Speech is clear. Obeys simple commands. Moves extremities. EXTREMITIES: No edema, no erythema seen. Results & Data Results & Data ([facility]) Vital Signs (Past 12 Hours) Vital Signs Temp Pulse Pulse Pulse Resp BP BP 04/14/21 17:00 04/14/21 15:39 36.5 C 82 18 125/78 04/14/21 15:18 75 04/14/21 14:43 04/14/21 11:07 36.6 C 78 22 115/67 04/14/21 08:35 24 04/14/21 08:23 04/14/21 08:15 04/14/21 08:00 73 04/14/21 07:17 36.6 C 82 22 127/59 L Pulse Ox Pulse Ox Pulse Ox Pulse Ox 04/14/21 17:00 91 04/14/21 15:39 92 04/14/21 15:18 04/14/21 14:43 92 91 82 L 04/14/21 11:07 92 04/14/21 08:35 90 04/14/21 08:23 90 04/14/21 08:15 93 04/14/21 08:00 04/14/21 07:17 92
[2021-04-14] MEDS: REMDESIVIR 100 MG in SODIUM CHLORIDE 0.9% 230 ML IV SCH (20:23)
[2021-04-14] MEDS: SODIUM CHLORIDE 0.9% 10ML FLUSH IV SCH (21:36)
[2021-04-15] MEDS: ENOXAPARIN INJ 40 MG/0.4 ML SYR SQ SCH ×2 (05:44→17:55)
[2021-04-15] MEDS: guaiFENesin/CODEINE 100MG/10MG 5ML UDC PO PRN (05:44)
[2021-04-15 06:36] LABS: Hematocrit (blood only) 42.3 % (42-52); Mean Corpuscular Hemoglobin 30.5 pg (25-34); Mean Corpuscular Hgb Conc 35.5 g/dL (32-36); Mean Platelet Volume 10.4 fL (7.4-10.4); Platelet Count 195 K/uL (130-400); RDW Coefficient of Variation 13.1 % (11.5-14.5); RDW Standard Deviation 41.5 fL (36.4-46.3); Red Blood Count 4.92 M/uL (4.7-6.1); White Blood Count 9.59 K/uL (4.8-10.8)
[2021-04-15 07:09] LABS: BUN Creatinine Ratio 23.1 (10-20); Calcium 7.9 mg/dl (8.5-10.1); Creatinine Clr Calc Pharmacy 96.3 ml/min; Magnesium 2.1 mg/dl (1.8-2.4); Potassium 3.3 mmol/L (3.5-5.1)
[2021-04-15] MEDS ORDERED: POTASSIUM CHLORIDE CRTAB 20 MEQ TABCR PO STA (08:12)
[2021-04-15] MEDS: dexAMETHasone 6 MG in SYRINGE 0 ML IV SCH (08:52)
[2021-04-15] MEDS: FLUTICASONE FUROATE 100MCG 14 PUFFS/INHALER INH SCH (08:52)
[2021-04-15] MEDS: INSULIN ASPART 100 UNITS/ML 3 ML PEN SC SCH ×4 (08:54→21:23)
[2021-04-15] MEDS ORDERED: INSULIN HUMAN NPH SC SCH (09:00)
[2021-04-15] MEDS ORDERED: FUROSEMIDE 40 MG in SYRINGE 0 ML IV ONE (10:26)
[2021-04-15] MEDS ORDERED: FUROSEMIDE 40 MG/4 ML VIAL IV ONE ×2 (10:30→12:33)
--- NOTE | 2021-04-15 10:32 | Pulmonary Consultation ---
Date of Consultation April 15, 2021 Assessment & Plan (1) Pneumonia due to COVID-19 virus: (2) Hypoxia: (3) Obesity: (4) Volume overload: 51-year-old male with a history of obesity, hypertension, diabetes mellitus type 2 and CKD stage III found to have acute hypoxia secondary to COVID-19 viral pneumonia. COVID-19 viral pneumonia and hypoxia: Awake proning recommended to be performed as much as tolerated. Incentive spirometer use encouraged as well. Agree with Decadron dosing at this time. CRP is trending down and thus he does not appear to be a candidate for tocilizumab at this time. I am not sure that remdesivir is going to help much at this point given that he is more than a week out from the start of his symptoms. He is 10-1/2 L positive since hospital admission. He does have lower extremity edema. I am going to give him a one-time dose of 40 mg IV Lasix. His potassium was 3.3 this morning, but it is being repleted by the hospitalist service. CPAP would likely be beneficial in the evening time when sleeping. Maintain oxygen saturations of 92 to 94%. Obesity: Weight loss is advised. Type 2 diabetes mellitus: Keep a close eye on his blood sugars while on Decadron. Hospitalist is managing. Thank you for the consult. We will continue to follow along with you. History of Present Illness Reason for Consultation: COVID-19 viral pneumonia and hypoxia Attending Physician: Radha Benedict MD History of Present Illness 51-year-old male with a history of morbid obesity with a BMI of 41.9, CKD stage III, tobacco chewing and hypertension who presented to the hospital on 04/11/2021 due to increasing shortness of breath. He has had symptoms for over a week. He notes increasing cough today. He has been feeling fatigued. He is currently requiring 14 L of oxygen saturating approximately 92 to 93%. Notably he went to an urgent care on the and was found to be hypoxic and told to go to the ER. He denies any prior history of lung disease. Denies any tobacco use. He has some dogs and cats at home. No leukocytosis seen on labs. Mildly hypokalemic with a potassium of 3.3. Creatinine within normal limits. He did have an ROBBY with a creatinine of 2.60 on arrival. His CRP level on arrival was 12.1 and trended down to 5.84 on 04/14/2021. Chest x-ray completed yesterday demonstrates bilateral interstitial infiltrates that has progressed compared to 04/11/2021. He is currently receiving remdesivir 100 mg daily, dexamethasone 6 mg daily and Lovenox 40 mg twice daily. He is also on Arnuity 100 mcg 1 puff daily. He is 10-1/2 L positive on his fluid balance since admission. Allergies Allergy/AdvReac Type Severity Reaction Status Date / Time Unable to Assess Allergy Unverified 04/11/21 20:42 Home Medications Medication Instructions Recorded Confirmed Type hydrochlorothiazide 25 mg tablet 25 mg PO DAILY 04/11/21 04/11/21 History lisinopril 40 mg tablet 40 mg PO DAILY 04/11/21 04/11/21 History Patient History Medical History (Updated 04/15/21 @ 10:28 by Uriel Madsen MD) CKD (chronic kidney disease) Volume overload Social History Smoking Status: Never smoker Second Hand Exposure: No; Do You Dip or Chew Tobacco: Yes; Tobacco Cessation Education Requested by Patient: No Hx Alcohol Use: No Hx Substance Use: No Preferred Language: Greek Communication Ability: Effective District Resource Officer Required: No Beliefs That Will Affect Care: None Current Living Situation: Family Other Information That Helps Us Care for You: No Feels Safe at Home: Yes Safety Concerns: Feels Safe At This Time Assistive Devices: Oxygen - Continuous Review of Systems Review of Systems: All systems reviewed & are unremarkable except as noted in HPI & below Physical Exam Physical Exam: Constitutional: Patient appears to be of their stated age. Patient is in no apparent distress. Patient is well-developed. Eyes: Pupils are equal round and reactive to light. Conjunctivae are normal. Anicteric sclera. Ears nose, mouth and throat: Mallampati class 2. Normal posterior oropharynx. Uvula is midline. Neck: Trachea is midline. Visual inspection is normal. Respiratory: Mildly tachypneic. Diminished lung sounds bilaterally. No significant clubbing noted. Cardiovascular: Regular rate and rhythm. No murmurs. 1+ pitting edema in the lower extremities bilaterally. Gastrointestinal: Normal bowel sounds, soft, nontender and nondistended. No hepatosplenomegaly noted. Musculoskeletal: No cyanosis. Patient is able to move all extremities. Strength is 5 out of 5 in the upper and lower extremities. Skin: No rashes, warm dry and intact. Neurologic: No obvious focal neurological deficits seen. Psychiatric: Alert and oriented x3 with a euthymic affect. Results & Data Results & Data ([facility]) Vital Signs (Past 12 Hours) Vital Signs Temp Pulse Pulse Resp BP BP Pulse Ox 04/15/21 08:00 58 L 04/15/21 06:43 99.0 F 68 23 128/79 93 04/15/21 03:32 99.0 F 65 22 123/74 92 04/15/21 03:00 04/14/21 23:54 59 L Pulse Ox 04/15/21 08:00 04/15/21 06:43 04/15/21 03:32 04/15/21 03:00 94 04/14/21 23:54 vital signs, labs and imaging personally reviewed PG Care Time/CCT Total # of Minutes Spent Total Time Spent with Patient: Total time spent is greater than 50% in coordination of care (as documented) at patient's floor/unit and/or counseling patient: Coding Level of Care Code 39075 Initial Inpt Care Lvl 3 Diagnoses Pneumonia due to COVID-19 virus U07.1; J12.82 Hypoxia R09.02 Obesity E66.9 Volume overload E87.70
--- NOTE | 2021-04-15 13:46 | Hospitalist Progress Note ---
Date of Service April 15, 2021 Assessment & Plan (1) Pneumonia due to COVID-19 virus: (2) Acute on chronic renal insufficiency: (3) Newly diagnosed diabetes: Plan: #. Pneumonia due to COVID-19 virus Had acute worsening of shortness of breath around 3 AM [04/14 and 04/15] requiring 12 to 14 L oxygen. CXR showed worsening bilateral pneumonia. Troponin was negative. Patient requiring 14 L oxygen today. Pulmonology on board: Recommends proning as tolerated, incentive spirometry, Decadron. One-time dose of Lasix 40 mg IV. CPAP during the night. Maintain SaO2 between 92 to 94% Continue with supportive care/Decadron/diet as tolerated/enoxaparin #. Acute on chronic renal insufficiency: Acute worsening of creatinine Stage III CKD at baseline base creat from 2017 is 1.5. Admitting creatinine 2.27, improving, continue to follow Resolved #. Newly diagnosed diabetes mellitus #. Obesity 04/13 A1c 6.6, patient endorses family member having diabetes type 2 Continue with sliding scale while inpatient Evaluate for Metformin upon discharge when his renal function reaches his baseline. hematology nurse educator consulted Patient made aware and counseled on lifestyle modification #. DVT prophylaxis: Lovenox Full Code Dispo-to home when improved and off oxygen. Admission and Anticipated Discharge Date Admission Date: April 12, 2021 Subjective Patient was proning on bed, on 40 L nasal cannula oxygen, NAD, denies chest pain/shortness of breath/fever/headache/other review of symptoms. He is eating and having bowel movements as usual. Again overnight today at around 3 AM he became short of breath requiring 12 to 14 L of oxygen from 6 to 8 L of oxygen. He states that he does not remember if he had any symptoms at the time. Physical Exam Physical Exam: GENERAL: Alert and oriented x3. NAD, on 14 L. HEENT: No pallor, no icterus. Pupils equal, round and reactive to light. Oral mucosa moist. NECK: No JVD, no neck masses. HEART: S1 and S2 heard. Regular rate and rhythm. No murmur, no gallop. RESPIRATORY SYSTEM: Normal AP diameter. No accessory muscle use. No wheezing, could not appreciate crackles. ABDOMEN: Soft, bowel sounds present, nontender, no distention. CENTRAL NERVOUS SYSTEM: No facial droop. Speech is clear. Obeys simple commands. Moves extremities. EXTREMITIES: No edema, no erythema seen. Results & Data Results & Data ([facility]) Vital Signs (Past 12 Hours) Vital Signs Temp Pulse Pulse Resp BP BP Pulse Ox 04/15/21 11:44 37.1 C 85 18 150/86 H 95 04/15/21 08:00 58 L 04/15/21 06:43 37.2 C 68 23 128/79 93 04/15/21 03:32 37.2 C 65 22 123/74 92 04/15/21 03:00 Pulse Ox 04/15/21 11:44 04/15/21 08:00 04/15/21 06:43 04/15/21 03:32 04/15/21 03:00 94
--- NOTE | 2021-04-15 14:05 | Pharmacy Report ---
Pharmacy Glycemic Short Note 2 - Date of Service April 15, 2021 - Glycemic Short BSG Results (Last 24 hours): 04/14/21 04/14/21 04/15/21 16:18 20:30 05:30 Glucose 77 POC Glucose 144 H 109 H 04/15/21 04/15/21 07:46 11:11 Glucose POC Glucose 89 228 H OUTPATIENT ANTIDIABETIC REGIMEN: * None * HbA1c 6.6% on 04/13/21 ASSESSMENT: 04/15/21 * Pt has received 128 units of insulin over the past 24hrs * 50 units of basal with NPH for steroid induced hyperglycemia secondary to dexamethasone * 78 units of bolus with NovoLog * BSGs [id number] mg/dl * AM fasting BSG is below goal range for inpatient targets at 77/89 mg/dl. NPH has a duration of action of 12-18 hrs but may still be affecting AM fasting BSG. No NovoLog given last evening at bedtime to enhance HS to AM drop in BSG. Will lower NPH slightly but tighten CF/CR for steroid induced hyperglycemia. Will loosen HS parameters since endogenous insulin secretion is sufficient from HS to AM. 04/14/21 * Pt has received 106 units of insulin over the past 24hrs * 40 units of basal with NPH * 66 units of bolus with NovoLog * BSGs 130-252 mg/dl * Increase NPH and tighten CR for better glycemic control 04/13/21 * 51 yo M not on any outpatient diabetes medications admitted on 04/11 for COVID- 19. Steroids initiated which precipitated hyperglycemia. Pharmacy consulted on 04/12 * NPH initiated late in the evening therefore only started with 0.2 units/kg * Novolog initiated at weight-based severe stress estimate with two overnight checks * BSG's have improved since yesterday * Continue above regimen, but OK to increase NPH slightly now that it is being administered with dexamethasone in the AM and AM fasting BSG was above goal range PLAN FOR INPATIENT GLYCEMIC CONTROL: * Basal insulin * NPH 40 units SC daily with dexamethasone * Bolus insulin * NovoLog per scale ACHS or Q6hrs while NPO * Goal Range: Low 110 mg/dL - High 140 mg/dL * Correction Factor: 10 mg/dL/unit (20 mg/dl/unit at HS only) * Nutritional / Prandial insulin per carb ratio of 1 unit per 2 grams CHO consumed (per CHO ratio of 5 at HS only) PLAN FOR DISCHARGE: * A1c = 6.6% on 04/13/21 * HbA1c of 6.5% or greater indicates "diagnosis of diabetes" --> ADA recommendation is to "Treat Diabetes" * Goal a1C = <7% * Metformin should be started at the time type 2 diabetes is diagnosed unless there are contraindications. Metformin is effective and safe, is inexpensive, and may reduce risk of cardiovascular events and . * B12 supplementation may be necessary with lobsterman metformin use * FDA has revised the label for metformin to reflect its safety in patients with eGFR 30 mL/min or above * Recommend starting: Metformin XR 500mg PO daily with evening meal. Typically the XR formulation of metformin is better tolerated than the immediate release formulation. Continue to titrate metformin dosing upwards as recommended. Dosage increases should be made in increments of 500 mg weekly, up to 2,000 mg/day PO, given in divided doses. Doses above 2000 mg/day may be better tolerated if divided and given 3 times per day with meals. Max: 2,550 mg/day PO, in divided doses * Support Patient Self-Management * Healthy Lifestyle (diet, exercise, and smoking cessation) * Disease self-management (SMBG) * Prevention of complications (BP, Lipid goals, Immunizations) * Consider outpatient Diabetes Self-Management Education & Support
[2021-04-15] MEDS: REMDESIVIR 100 MG in SODIUM CHLORIDE 0.9% 230 ML IV SCH (20:06)
[2021-04-15] MEDS: SODIUM CHLORIDE 0.9% 10ML FLUSH IV SCH (21:21)
[2021-04-16] MEDS: ENOXAPARIN INJ 40 MG/0.4 ML SYR SQ SCH ×2 (05:41→17:50)
[2021-04-16 07:05] LABS: Calcium 8.1 mg/dl (8.5-10.1); Est GFR (African American) 71.5 ml/min; Est GFR (Non-African American) 61.7 ml/min; Magnesium 1.9 mg/dl (1.8-2.4); Potassium 3.3 mmol/L (3.5-5.1)
[2021-04-16] MEDS: FLUTICASONE FUROATE 100MCG 14 PUFFS/INHALER INH SCH (08:52)
[2021-04-16] MEDS: dexAMETHasone 6 MG in SYRINGE 0 ML IV SCH (08:53)
[2021-04-16] MEDS: INSULIN ASPART 100 UNITS/ML 3 ML PEN SC SCH ×4 (08:53→20:55)
[2021-04-16] MEDS ORDERED: INSULIN HUMAN NPH SC SCH ×2 (09:00)
--- NOTE | 2021-04-16 09:15 | Pulmonology Progress Note ---
Date of Service April 16, 2021 Assessment & Plan (1) Pneumonia due to COVID-19 virus: (2) Hypoxia: (3) Obesity: (4) Volume overload: Plan: 51-year-old male with a history of obesity, hypertension, diabetes mellitus type 2 and CKD stage III found to have acute hypoxia secondary to COVID-19 viral pneumonia Chest x-ray 04/13/2021 personally reviewed: Portable film, good inspiratory effort, bilateral alveolar opacities appreciated, bilateral costophrenic and cardiophrenic thickening, increased cardiac silhouette. --Acute hypoxic respiratory failure Secondary to multilobar COVID-19 pneumonia COVID-19 PCR positive CRP: 12.1 --> 5.8 Procalcitonin Continue with O2 supplementation to keep oxygen saturation between 90-92%. Awake proning will be helpful Continue with incentive spirometry Continue with flutter valve. Recommend patient to be kept euvolemic to negative balance BiPAP nightly and as needed shortness of breath --Probable JACQUELIN/OHS Continue with BiPAP nightly and as needed shortness of breath Plan: Recommend having good measurement of the urine output It seems to be patient has +12 L since coming to the hospital this is likely secondary to unmeasured urine output Please note the above document was generated using voice recognition software. It may contain grammatical, syntax or spelling errors.Any formal questions or concerns about the content, text or information contained within the body of this dictation should be directly addressed to the provider for clarification. Admission and Anticipated Discharge Date Admission Date: April 12, 2021 Subjective Patient seen and examined at bedside. No acute distress. Patient was saturating 89-90% on 15 L nasal cannula States that he is doing better compared to before. Did use BiPAP overnight. Has been using incentive spirometer as well as per above. Denies any chest pain, fair appetite. Review of Systems Review of Systems: All systems reviewed & are unremarkable except as noted in Subjective Physical Exam Physical Exam: Constitutional: No acute distress HEENT: EOMI, PERRLA Respiratory system: Decreased air entry bilaterally, no wheeze, no rhonchi, positive crackles bilateral lower lobe CVS: S1-S2 positive, no murmurs or gallops Abdomen: Soft, nontender, nondistended, positive bowel sounds x4 Extremities: +2 pulses bilaterally radialis/ dorsalis pedis, no cyanosis, no edema Neuro: Awake alert oriented x3 Psych: Normal mood and affect G/U: No Bateman Skin: no rashes, warm and dry Lymphatic: no cervical or axillary lymphadenopathy Results & Data Results & Data ([facility]) Vital Signs (Past 12 Hours) Vital Signs Temp Pulse Pulse Pulse Resp BP BP 04/16/21 07:23 36.5 C 89 16 121/75 04/16/21 03:24 36.9 C 61 18 138/90 04/16/21 03:00 04/15/21 23:55 78 04/15/21 22:51 36.9 C 62 22 156/89 H Pulse Ox Pulse Ox 04/16/21 07:23 94 04/16/21 03:24 95 04/16/21 03:00 93 04/15/21 23:55 04/15/21 22:51 96 04/15/21 05:30 04/16/21 05:30 PG Care Time/CCT Total # of Minutes Spent Total Time Spent with Patient: Total time spent is greater than 50% in coordination of care (as documented) at patient's floor/unit and/or counseling patient: Coding Level of Care Code 71912 Subseq Hosp Care Lvl 3 Diagnoses Pneumonia due to COVID-19 virus U07.1; J12.82 Hypoxia R09.02 Obesity E66.9 Volume overload E87.70
[2021-04-16] MEDS ORDERED: POTASSIUM CHLORIDE CRTAB 20 MEQ TABCR PO STA (10:24)
--- NOTE | 2021-04-16 11:36 | XRay Report ---
XR chest 1V portable HISTORY: 51 years-old Male f/u CXR, O2 requirement not improving. COVID pt. acute shortness of breat h in a patient with history of pneumonia COMPARISON: 04/14/2021 TECHNIQUE: Portable AP view of the chest FINDINGS: Cardiac silhouette is enlarged. Multifocal bilateral airspace opacities are redemonstrated. There is slightly improved aeration of the left lung. No pneumothorax or pleural effusion. The bones of the ch est appear grossly intact. IMPRESSION: Multifocal airspace opacities redemonstrated suggestive of viral pneumonia. There is slig htly improved aeration of the left lung. ACT 112: Negative or not required by law. The above report was generated using voice recognition software. It may contain grammatical, syntax o r spelling errors. Electronically signed by: Jose Esquivel M.D. 04/16/2021 11:35 AM
[2021-04-16] MEDS ORDERED: POTASSIUM CHLORIDE CRTAB 20 MEQ TABCR PO ONE (16:00)
--- NOTE | 2021-04-16 16:29 | Hospitalist Progress Note ---
Date of Service April 16, 2021 Assessment & Plan (1) Pneumonia due to COVID-19 virus: (2) Acute on chronic renal insufficiency: (3) Newly diagnosed diabetes: Plan: #. 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 04/14 CXR showed worsening bilateral pneumonia. Troponin was negative. Patient requiring 15 L oxygen in the morning, down to 10 L by the day. Pulmonology on board: Recommends proning as tolerated, incentive spirometry, Decadron. CPAP during the night. Maintain SaO2 between 92 to 94% Continue with supportive care/Decadron/diet as tolerated/enoxaparin #. 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 #. Acute on chronic renal insufficiency: Acute worsening of creatinine Stage III CKD at baseline base creat from 2017 is 1.5. Admitting creatinine 2.27, improving, continue to follow Resolved #. Newly diagnosed diabetes mellitus #. Obesity 04/13 A1c 6.6, patient endorses family member having diabetes type 2 Continue with sliding scale while inpatient Evaluate for Metformin upon discharge when his renal function reaches his baseline. critical care educator consulted Patient made aware and counseled on lifestyle modification #. DVT prophylaxis: Lovenox Full Code Dispo-to home when improved and off oxygen. Admission and Anticipated Discharge Date Admission Date: April 12, 2021 Subjective Patient was proning on bed, on 10 L nasal cannula oxygen, NAD, denies chest pain/shortness of breath/fever/headache/other review of symptoms. He is eating and having bowel movements as usual. 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 Per patient, he has never been formally diagnosed with sleep apnea, but given his body mass index and pattern of increased oxygen requirement while he is asleep every night is highly suggestive of sleep apnea. We will put him on CPAP pressure of 8, titrate pressure as needed. Patient advised to follow-up with primary care doctor for sleep study as an outpatient. As usual, patient did not have any chest pain or feeling of heart racing or any other discomfort at bedside shortness of breath when he needed more oxygen. Physical Exam Physical Exam: GENERAL: Alert and oriented x3. NAD, on 14 L. HEENT: No pallor, no icterus. Pupils equal, round and reactive to light. Oral mucosa moist. NECK: No JVD, no neck masses. HEART: S1 and S2 heard. Regular rate and rhythm. No murmur, no gallop. RESPIRATORY SYSTEM: Normal AP diameter. No accessory muscle use. No wheezing, could not appreciate crackles. ABDOMEN: Soft, bowel sounds present, nontender, no distention. CENTRAL NERVOUS SYSTEM: No facial droop. Speech is clear. Obeys simple commands. Moves extremities. EXTREMITIES: No edema, no erythema seen. Results & Data Results & Data ([facility]) Vital Signs (Past 12 Hours) Vital Signs Temp Pulse Pulse Resp BP Pulse Ox 04/16/21 15:26 36.4 C L 88 19 138/84 94 04/16/21 13:05 91 04/16/21 12:00 93 04/16/21 11:05 36.4 C L 88 18 118/86 94 04/16/21 09:45 22 92 04/16/21 07:23 36.5 C 89 16 121/75 94 04/16/21 07:00 61
[2021-04-16] MEDS: REMDESIVIR 100 MG in SODIUM CHLORIDE 0.9% 230 ML IV SCH (20:07)
[2021-04-16] MEDS: SODIUM CHLORIDE 0.9% 10ML FLUSH IV SCH (20:55)
[2021-04-17] MEDS: ENOXAPARIN INJ 40 MG/0.4 ML SYR SQ SCH ×2 (05:47→17:46)
[2021-04-17 07:32] LABS: BUN Creatinine Ratio 21.4 (10-20); Calcium 8.8 mg/dl (8.5-10.1); Creatinine Clr Calc Pharmacy 111.9 ml/min; Est GFR (Non-African American) 67.3 ml/min; Magnesium 2.1 mg/dl (1.8-2.4); Phosphorus 2.9 mg/dl (2.5-4.9); Potassium 3.8 mmol/L (3.5-5.1)
[2021-04-17] MEDS ORDERED: INSULIN HUMAN NPH SC SCH (09:00)
[2021-04-17] MEDS: INSULIN ASPART 100 UNITS/ML 3 ML PEN SC SCH ×4 (09:38→20:41)
[2021-04-17] MEDS: dexAMETHasone 6 MG in SYRINGE 0 ML IV SCH (09:40)
[2021-04-17] MEDS: INSULIN HUMAN NPH SC SCH (09:40)
[2021-04-17] MEDS: FLUTICASONE FUROATE 100MCG 14 PUFFS/INHALER INH SCH (09:40)
--- NOTE | 2021-04-17 13:05 | Pharmacy Report ---
Pharmacy Glycemic Short Note 2 - Date of Service April 17, 2021 - Glycemic Short BSG Results (Last 24 hours): 04/16/21 04/16/21 04/17/21 16:21 20:37 06:34 Glucose 71 POC Glucose 109 H 83 04/17/21 04/17/21 04/17/21 07:17 07:18 11:36 Glucose POC Glucose 68 L* 72 167 H OUTPATIENT ANTIDIABETIC REGIMEN: * None * HbA1c 6.6% on 04/13/21 ASSESSMENT: 04/16/21: * Pt received a total of 110 units of insulin yesterday (40 of which were NPH) and BSGs were very well controlled. * Unfortunately pt did experience hypoglycemia this morning. Pt received only 1 unit of NovoLog at bedtime. Will reduce NPH dose (although typical duration of action 12-18 hours) as this may be affecting fasting BSG. Will also loosen NovoLog scale somewhat. Pt remains on dexamethasone and is tolerating a diet. 04/15/21 * Pt has received 128 units of insulin over the past 24hrs * 50 units of basal with NPH for steroid induced hyperglycemia secondary to dexamethasone * 78 units of bolus with NovoLog * BSGs [id number] mg/dl * AM fasting BSG is below goal range for inpatient targets at 77/89 mg/dl. NPH has a duration of action of 12-18 hrs but may still be affecting AM fasting BSG. No NovoLog given last evening at bedtime to enhance HS to AM drop in BSG. Will lower NPH slightly but tighten CF/CR for steroid induced hyperglycemia. Will loosen HS parameters since endogenous insulin secretion is sufficient from HS to AM. 04/14/21 * Pt has received 106 units of insulin over the past 24hrs * 40 units of basal with NPH * 66 units of bolus with NovoLog * BSGs 130-252 mg/dl * Increase NPH and tighten CR for better glycemic control 04/13/21 * 51 yo M not on any outpatient diabetes medications admitted on 04/11 for COVID- 19. Steroids initiated which precipitated hyperglycemia. Pharmacy consulted on 04/12 * NPH initiated late in the evening therefore only started with 0.2 units/kg * Novolog initiated at weight-based severe stress estimate with two overnight checks * BSG's have improved since yesterday * Continue above regimen, but OK to increase NPH slightly now that it is being administered with dexamethasone in the AM and AM fasting BSG was above goal range PLAN FOR INPATIENT GLYCEMIC CONTROL: * Basal insulin * NPH 25 units SC daily with dexamethasone * Bolus insulin * NovoLog per scale ACHS or Q6hrs while NPO * Goal Range: Low 110 mg/dL - High 140 mg/dL * Correction Factor: 15 mg/dL/unit (20 mg/dl/unit at HS only) * Nutritional / Prandial insulin per carb ratio of 1 unit per 4 grams CHO consumed (per CHO ratio of 10 at HS only) PLAN FOR DISCHARGE: * A1c = 6.6% on 04/13/21 * HbA1c of 6.5% or greater indicates "diagnosis of diabetes" --> ADA recommendation is to "Treat Diabetes" * Goal a1C = <7% * Metformin should be started at the time type 2 diabetes is diagnosed unless there are contraindications. Metformin is effective and safe, is inexpensive, and may reduce risk of cardiovascular events and . * B12 supplementation may be necessary with intermediate card tender metformin use * FDA has revised the label for metformin to reflect its safety in patients with eGFR 30 mL/min or above * Recommend starting: Metformin XR 500mg PO daily with evening meal. Typically the XR formulation of metformin is better tolerated than the immediate release formulation. Continue to titrate metformin dosing upwards as recommended. Dosage increases should be made in increments of 500 mg weekly, up to 2,000 mg/day PO, given in divided doses. Doses above 2000 mg/day may be better tolerated if divided and given 3 times per day with meals. Max: 2,550 mg/day PO, in divided doses * Support Patient Self-Management * Healthy Lifestyle (diet, exercise, and smoking cessation) * Disease self-management (SMBG) * Prevention of complications (BP, Lipid goals, Immunizations) * Consider outpatient Diabetes Self-Management Education & Support
--- NOTE | 2021-04-17 13:55 | Pulmonology Progress Note ---
Date of Service April 17, 2021 Assessment & Plan (1) Pneumonia due to COVID-19 virus: (2) Hypoxia: (3) Obesity: (4) Volume overload: Plan: 51-year-old male with a history of obesity, hypertension, diabetes mellitus type 2 and CKD stage III found to have acute hypoxia secondary to COVID-19 viral pneumonia Chest x-ray 04/13/2021 personally reviewed: Portable film, good inspiratory effort, bilateral alveolar opacities appreciated, bilateral costophrenic and cardiophrenic thickening, increased cardiac silhouette. --Acute hypoxic respiratory failure Secondary to multilobar COVID-19 pneumonia COVID-19 PCR positive CRP: 12.1 --> 5.8 Procalcitonin Continue with O2 supplementation to keep oxygen saturation between 90-92%. Awake proning will be helpful Continue with incentive spirometry Continue with flutter valve. Recommend patient to be kept euvolemic to negative balance BiPAP nightly and as needed shortness of breath --Probable JACQUELIN/OHS Continue with BiPAP nightly and as needed shortness of breath Plan: In/out: +1050, urine output 4 mL Overall patient is improving when it comes to oxygen requirement. Can consider 20 mg of Lasix today or tomorrow as I am noticing edema in the lower extremity Case was discussed with RN Please note the above document was generated using voice recognition software. It may contain grammatical, syntax or spelling errors.Any formal questions or concerns about the content, text or information contained within the body of t his dictation should be directly addressed to the provider for clarification. Admission and Anticipated Discharge Date Admission Date: April 12, 2021 Subjective Patient was seen and examined at bedside. No acute distress, noted with symptoms overnight. Overnight patient did use CPAP. He said he did not like it but it did help. Shortness of breath is improved. He has been using incentive spirometry as well as flutter valve. Denies any hemoptysis. Fair appetite. Patient was saturating 94% on 12 L at time of examination and went down to 10 L Review of Systems Review of Systems: All systems reviewed & are unremarkable except as noted in Subjective Physical Exam Physical Exam: Constitutional: No acute distress HEENT: EOMI, PERRLA Respiratory system: Decreased air entry bilaterally, no wheeze, no rhonchi, positive crackles bilateral lower lobe CVS: S1-S2 positive, no murmurs or gallops Abdomen: Soft, nontender, nondistended, positive bowel sounds x4 Extremities: +2 pulses bilaterally radialis/ dorsalis pedis, no cyanosis, +1 pitting edema bilateral lower extremity Neuro: Awake alert oriented x3 Psych: Normal mood and affect G/U: No Bateman Skin: no rashes, warm and dry Lymphatic: no cervical or axillary lymphadenopathy Results & Data Results & Data ([facility]) Vital Signs (Past 12 Hours) Vital Signs Temp Pulse Pulse Pulse Resp BP BP 04/17/21 12:05 04/17/21 11:04 36.9 C 77 17 130/83 04/17/21 09:47 04/17/21 07:20 36.5 C 86 19 140/78 04/17/21 07:00 63 04/17/21 03:15 37.0 C 68 18 128/78 04/17/21 03:08 62 17 04/17/21 03:00 Pulse Ox Pulse Ox 04/17/21 12:05 92 04/17/21 11:04 96 04/17/21 09:47 93 04/17/21 07:20 90 04/17/21 07:00 04/17/21 03:15 92 04/17/21 03:08 92 04/17/21 03:00 93 04/15/21 05:30 04/17/21 06:34 PG Care Time/CCT Total # of Minutes Spent Total Time Spent with Patient: Total time spent is greater than 50% in coordination of care (as documented) at patient's floor/unit and/or counseling patient: Coding Level of Care Code 97780 Subseq Hosp Care Lvl 3 Diagnoses Pneumonia due to COVID-19 virus U07.1; J12.82 Hypoxia R09.02 Obesity E66.9 Volume overload E87.70
--- NOTE | 2021-04-17 15:24 | Hospitalist Progress Note ---
Date of Service April 17, 2021 Assessment & Plan (1) Pneumonia due to COVID-19 virus: (2) Acute on chronic renal insufficiency: (3) Newly diagnosed diabetes: Plan: #. 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 04/14 CXR showed worsening bilateral pneumonia. Troponin was negative. Patient fluctuating between 7 to 12 L of oxygen since last 3 to 4 days, patient reports being helped by CPAP. Pulmonology on board: Recommends proning as tolerated, incentive spirometry, Decadron. CPAP during the night. Maintain SaO2 between 92 to 94% Will get BNP to rule out any heart failure component. Use Lasix as needed per clinical discretion. Will use one-time dose of 20 mg IV. Continue with supportive care/Decadron/diet as tolerated/enoxaparin. Patient is status post remdesivir. #. 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 At the time patient does not have any other symptoms except for drop in saturation and SOB Per patient, he has never been diagnosed with sleep apnea in the past nor with heart failure. Given his BMI and circumstances, likely sleep apnea, patient advised to follow- up with PCP for sleep study as an outpatient We will continue with CPAP nightly for now and as needed Lasix. Follow-up with the proBNP #. Acute on chronic renal insufficiency: Acute worsening of creatinine Stage III CKD at baseline base creat from 2017 is 1.5. Admitting creatinine 2.27, improving, continue to follow Resolved #. Newly diagnosed diabetes mellitus #. Obesity 04/13 A1c 6.6, patient endorses family member having diabetes type 2 Continue with sliding scale while inpatient Evaluate for Metformin upon discharge when his renal function reaches his baseline. perinatal educator consulted Patient made aware and counseled on lifestyle modification #. DVT prophylaxis: Lovenox Full Code Dispo-to home when improved and off oxygen. Admission and Anticipated Discharge Date Admission Date: April 12, 2021 Subjective Patient was sitting up in chair, on 7 L nasal cannula oxygen, NAD, denies any issues overnight. He feels better. He has been eating/moving bowels okay. Afebrile while in hospital. Looks like he is fluctuating between 6 to 12 L of oxygen currently since last 3 days. He is using CPAP overnight and as needed. Physical Exam Physical Exam: GENERAL: Alert and oriented x3. NAD, on 7 L. HEENT: No pallor, no icterus. Pupils equal, round and reactive to light. Oral mucosa moist. NECK: No JVD, no neck masses. HEART: S1 and S2 heard. Regular rate and rhythm. No murmur, no gallop. RESPIRATORY SYSTEM: Normal AP diameter. No accessory muscle use. No wheezing, could not comment on crackles due to combination of obese patient and yellow stethoscope. ABDOMEN: Soft, bowel sounds present, nontender, no distention. CENTRAL NERVOUS SYSTEM: No facial droop. Speech is clear. Obeys simple commands. Moves extremities. EXTREMITIES: trace edema, no erythema seen. Results & Data Results & Data ([facility]) Vital Signs (Past 12 Hours) Vital Signs Temp Pulse Pulse Resp BP BP Pulse Ox 04/17/21 15:17 36.9 C 93 H 20 139/86 96 04/17/21 12:05 92 04/17/21 11:04 36.9 C 77 17 130/83 96 04/17/21 09:47 93 04/17/21 07:20 36.5 C 86 19 140/78 90 04/17/21 07:00 63
[2021-04-17] MEDS ORDERED: FUROSEMIDE 20 MG in SYRINGE 0 ML IV ONE (17:24)
[2021-04-17] MEDS ORDERED: FUROSEMIDE 40 MG/4 ML VIAL IV ONE (17:45)
[2021-04-18] MEDS: ENOXAPARIN INJ 40 MG/0.4 ML SYR SQ SCH ×2 (04:57→08:49)
[2021-04-18 07:56] LABS: BUN Creatinine Ratio 21.7 (10-20); Calcium 8.5 mg/dl (8.5-10.1); Creatinine Clr Calc Pharmacy 108.7 ml/min; Est GFR (African American) 75.7 ml/min; Est GFR (Non-African American) 65.3 ml/min; Magnesium 1.8 mg/dl (1.8-2.4); Potassium 3.3 mmol/L (3.5-5.1)
[2021-04-18] MEDS: dexAMETHasone 6 MG in SYRINGE 0 ML IV SCH (08:49)
[2021-04-18] MEDS: FLUTICASONE FUROATE 100MCG 14 PUFFS/INHALER INH SCH (08:50)
[2021-04-18] MEDS: INSULIN ASPART 100 UNITS/ML 3 ML PEN SC SCH ×4 (09:48→21:17)
[2021-04-18] MEDS: INSULIN HUMAN NPH SC SCH (09:49)
[2021-04-18] MEDS ORDERED: POTASSIUM CHLORIDE CRTAB 20 MEQ TABCR PO STA (12:35)
--- NOTE | 2021-04-18 12:37 | Hospitalist Progress Note ---
Date of Service April 18, 2021 Assessment & Plan (1) Pneumonia due to COVID-19 virus: (2) Acute on chronic renal insufficiency: (3) Newly diagnosed diabetes: Plan: #. 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 04/14 CXR showed worsening bilateral pneumonia. Troponin was negative. Patient oxygen requirement is down to 3 L of nasal cannula now. Appreciate pulmonary medicine input: Recommends proning as tolerated, incentive spirometry, Decadron. CPAP during the night. Maintain SaO2 between 92 to 94% proBNP of 233. Did receive IV Lasix 20 mg on 04/17 with adequate urine output. Will order another dose of IV Lasix 20 mg now. Monitor ins and outs along with daily weights. Continue with supportive care/Decadron/diet as tolerated/enoxaparin. Patient is status post remdesivir. #. 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 Likely sleep apnea Per patient, he has never been diagnosed with sleep apnea in the past nor with heart failure. Given his BMI and circumstances, likely sleep apnea, patient advised to follow- up with PCP for sleep study as an outpatient Continue with CPAP nightly for now and as needed Lasix. #. Acute on chronic renal insufficiency: resolved Stage III CKD at baseline base creat from 2017 is 1.5. #. Newly diagnosed diabetes mellitus #. Obesity 04/13 A1c 6.6, patient endorses family member having diabetes type 2 Continue with sliding scale while inpatient Evaluate for Metformin upon discharge when his renal function reaches his baseline. environmental educator consulted Patient made aware and counseled on lifestyle modification #. DVT prophylaxis: Lovenox Full Code Dispo-to home when improved and off oxygen. Admission and Anticipated Discharge Date Admission Date: April 12, 2021 Subjective Currently patient reports that he is feeling better. Shortness of breath is improved. Does have minimal cough. Appetite is good. Denies any nausea or vomiting. Denies any significant diarrhea. Rest of the review of systems negative. Currently remains on 3 L of nasal cannula. Review of Systems Review of Systems: All systems reviewed & are unremarkable except as noted in HPI & below Physical Exam Physical Exam: General: A&Ox3 HENT: NCAT, MMM, EOMI Eyes: PERRLA Neck: Supple, normal range of motion CVS: normal rate and rhythm Resp: b/l coarse breath sounds Abdomen: Soft, ND/NT, +BS Extremities: No c/c/e Neuro: face symmetric, strength grossly equal, no focal deficit Skin: warm and dry, no rashes/lesions/errythema MSK: normal ROM, no joint swelling/erythema Results & Data Results & Data ([facility]) Vital Signs (Past 12 Hours) Vital Signs Temp Pulse Pulse Resp BP BP Pulse Ox 04/18/21 11:20 36.9 C 90 18 137/97 92 04/18/21 07:14 37.0 C 82 21 140/78 89 L 04/18/21 03:31 36.7 C 83 20 127/90 92 04/18/21 03:00 04/18/21 02:55 70 18 93 Pulse Ox 04/18/21 11:20 04/18/21 07:14 04/18/21 03:31 04/18/21 03:00 93 04/18/21 02:55 Laboratory Results Laboratory Results - last 24 hr 04/17/21 04/17/21 04/17/21 06:34 16:29 20:05 Sodium Potassium Chloride Carbon Dioxide Anion Gap BUN Creatinine Est Cr Clr Drug Dosing Est GFR ( Amer) Est GFR (Non-Af Amer) BUN/Creatinine Ratio Glucose POC Glucose 163 H 226 H Calcium Magnesium NT-Pro-B Natriuret Pep 233 04/18/21 04/18/21 04/18/21 06:18 07:57 11:59 Sodium 140 Potassium 3.3 L Chloride 103 Carbon Dioxide 28 Anion Gap 8.0 BUN 27 H Creatinine 1.25 Est Cr Clr Drug Dosing 108.7 Est GFR ( Amer) 75.7 Est GFR (Non-Af Amer) 65.3 BUN/Creatinine Ratio 21.7 H Glucose 80 POC Glucose 87 148 H Calcium 8.5 Magnesium 1.8 NT-Pro-B Natriuret Pep
[2021-04-18] MEDS ORDERED: FUROSEMIDE 40 MG/4 ML VIAL IV ONE (13:00)
[2021-04-18] MEDS ORDERED: FUROSEMIDE 20 MG in SYRINGE 0 ML IV ONE (13:00)
--- NOTE | 2021-04-18 16:07 | Pulmonology Progress Note ---
Date of Service April 18, 2021 Assessment & Plan (1) Pneumonia due to COVID-19 virus: (2) Hypoxia: (3) Obesity: (4) Volume overload: Plan: 51-year-old male with a history of obesity, hypertension, diabetes mellitus type 2 and CKD stage III found to have acute hypoxia secondary to COVID-19 viral pneumonia Chest x-ray 04/13/2021 personally reviewed: Portable film, good inspiratory effort, bilateral alveolar opacities appreciated, bilateral costophrenic and cardiophrenic thickening, increased cardiac silhouette. --Acute hypoxic respiratory failure Secondary to multilobar COVID-19 pneumonia COVID-19 PCR positive CRP: 12.1 --> 5.8 Procalcitonin Continue with O2 supplementation to keep oxygen saturation between 90-92%. Awake proning will be helpful Continue with incentive spirometry Continue with flutter valve. Recommend patient to be kept euvolemic to negative balance BiPAP nightly and as needed shortness of breath --Probable JACQUELIN/OHS Continue with BiPAP nightly and as needed shortness of breath Plan: In/out: -1345 Patient is doing clinically better as regards to his oxygen requirement. Continue titrate off oxygen to keep oxygen saturation between 88-92% No further recommendation from pulmonary perspective. Will sign off. Please call directly with any questions Case was discussed with RN Please note the above document was generated using voice recognition software. It may contain grammatical, syntax or spelling errors.Any formal questions or co ncerns about the content, text or information contained within the body of this dictation should be directly addressed to the provider for clarification. Admission and Anticipated Discharge Date Admission Date: April 12, 2021 Subjective Patient seen and examined at bedside. No acute distress, no adverse events overnight. Patient has been using BiPAP at night. He was saturating 94% on 5 L again on the time of examination Went down to 3 L He is feeling better. Denies any chest pain, has been using incentive spirometry. Fair appetite. Review of Systems Review of Systems: All systems reviewed & are unremarkable except as noted in Subjective Physical Exam Physical Exam: Constitutional: No acute distress HEENT: EOMI, PERRLA Respiratory system: Decreased air entry bilaterally, no wheeze, no rhonchi, positive crackles bilateral lower lobe CVS: S1-S2 positive, no murmurs or gallops Abdomen: Soft, nontender, nondistended, positive bowel sounds x4 Extremities: +2 pulses bilaterally radialis/ dorsalis pedis, no cyanosis, +1 pitting edema bilateral lower extremity Neuro: Awake alert oriented x3 Psych: Normal mood and affect G/U: No Bateman Skin: no rashes, warm and dry Lymphatic: no cervical or axillary lymphadenopathy Results & Data Results & Data ([facility]) Vital Signs (Past 12 Hours) Vital Signs Temp Pulse Resp BP BP Pulse Ox 04/18/21 15:29 37.1 C 89 21 122/88 91 04/18/21 11:20 36.9 C 90 18 137/97 92 04/18/21 07:14 37.0 C 82 21 140/78 89 L 04/15/21 05:30 04/18/21 06:18 PG Care Time/CCT Total # of Minutes Spent Total Time Spent with Patient: Total time spent is greater than 50% in coordination of care (as documented) at patient's floor/unit and/or counseling patient: [place] [address] Subseq Hosp Care Lvl 2 Patient Type Established Diagnoses Pneumonia due to COVID-19 virus U07.1; J12.82 Hypoxia R09.02 Obesity E66.9 Volume overload E87.70
[2021-04-19] MEDS: ENOXAPARIN INJ 40 MG/0.4 ML SYR SQ SCH (06:20)
[2021-04-19 06:30] LABS: Basophils # (auto) 0.01 K/uL (0-0.2); Basophils % (auto) 0.1 %; Eosinophils # (auto) 0.28 K/uL (0-0.5); Eosinophils % (auto) 2.7 %; Hematocrit (blood only) 44.8 % (42-52); Hemoglobin 15.3 g/dL (14.0-18.0); Immature Granulocytes # (auto) 0.24 K/uL (0.00-0.02); Immature Granulocytes % (auto) 2.3 %; Lymphocytes % (auto) 14.3 %; Mean Corpuscular Hemoglobin 30.1 pg (25-34); Mean Corpuscular Hgb Conc 34.2 g/dL (32-36); Mean Platelet Volume 9.7 fL (7.4-10.4); Monocytes # (auto) 0.51 K/uL (0.11-0.59); Monocytes % (auto) 4.9 %; Neutrophils # (auto) 7.93 K/uL (1.4-6.5); Neutrophils % (auto) 75.7 %; Platelet Count 347 K/uL (130-400); RDW Standard Deviation 42.2 fL (36.4-46.3); Red Blood Count 5.09 M/uL (4.7-6.1); White Blood Count 10.47 K/uL (4.8-10.8)
[2021-04-19 07:02] LABS: BUN Creatinine Ratio 19.9 (10-20); Calcium 8.4 mg/dl (8.5-10.1); Creatinine Clr Calc Pharmacy 94.1 ml/min; Est GFR (African American) 63.8 ml/min; Potassium 3.6 mmol/L (3.5-5.1)
[2021-04-19] MEDS: FLUTICASONE FUROATE 100MCG 14 PUFFS/INHALER INH SCH (08:22)
[2021-04-19] MEDS: INSULIN ASPART 100 UNITS/ML 3 ML PEN SC SCH ×2 (09:17→12:32)
[2021-04-19] MEDS: dexAMETHasone 6 MG in SYRINGE 0 ML IV SCH (09:17)
[2021-04-19] MEDS: INSULIN HUMAN NPH SC SCH (09:17)
--- NOTE | 2021-04-19 14:45 | Pharmacy Report ---
Pharmacy Glycemic Short Note 2 - Date of Service April 19, 2021 - Glycemic Short BSG Results (Last 24 hours): 04/18/21 04/18/21 04/19/21 16:09 20:22 05:36 Glucose 83 POC Glucose 154 H 173 H 04/19/21 04/19/21 07:47 12:00 Glucose POC Glucose 110 H 133 H OUTPATIENT ANTIDIABETIC REGIMEN: * None * HbA1c 6.6% on 04/13/21 ASSESSMENT: 04/19/21 * Pt received a total of 71 units of insulin, 25 of which were NPH * Fasting and post prandial BSGs very well controlled yesterday * Patient has 2 more days of dexamethasone ordered. 04/17/21: * Pt received a total of 110 units of insulin yesterday (40 of which were NPH) and BSGs were very well controlled. * Unfortunately pt did experience hypoglycemia this morning. Pt received only 1 unit of NovoLog at bedtime. Will reduce NPH dose (although typical duration of action 12-18 hours) as this may be affecting fasting BSG. Will also loosen NovoLog scale somewhat. Pt remains on dexamethasone and is tolerating a diet. 04/15/21 * Pt has received 128 units of insulin over the past 24hrs * 50 units of basal with NPH for steroid induced hyperglycemia secondary to dexamethasone * 78 units of bolus with NovoLog * BSGs [id number] mg/dl * AM fasting BSG is below goal range for inpatient targets at 77/89 mg/dl. NPH has a duration of action of 12-18 hrs but may still be affecting AM fasting BSG. No NovoLog given last evening at bedtime to enhance HS to AM drop in BSG. Will lower NPH slightly but tighten CF/CR for steroid induced hyperglycemia. Will loosen HS parameters since endogenous insulin secretion is sufficient from HS to AM. 04/14/21 * Pt has received 106 units of insulin over the past 24hrs * 40 units of basal with NPH * 66 units of bolus with NovoLog * BSGs 130-252 mg/dl * Increase NPH and tighten CR for better glycemic control 04/13/21 * 51 yo M not on any outpatient diabetes medications admitted on 04/11 for COVID- 19. Steroids initiated which precipitated hyperglycemia. Pharmacy consulted on 04/12 * NPH initiated late in the evening therefore only started with 0.2 units/kg * Novolog initiated at weight-based severe stress estimate with two overnight checks * BSG's have improved since yesterday * Continue above regimen, but OK to increase NPH slightly now that it is being administered with dexamethasone in the AM and AM fasting BSG was above goal range PLAN FOR INPATIENT GLYCEMIC CONTROL: * Basal insulin * NPH 25 units SC daily with dexamethasone * Bolus insulin * NovoLog per scale ACHS or Q6hrs while NPO * Goal Range: Low 110 mg/dL - High 140 mg/dL * Correction Factor: 15 mg/dL/unit (20 mg/dl/unit at HS only) * Nutritional / Prandial insulin per carb ratio of 1 unit per 3 grams CHO consumed (per CHO ratio of 10 at HS only) PLAN FOR DISCHARGE: * A1c = 6.6% on 04/13/21 * HbA1c of 6.5% or greater indicates "diagnosis of diabetes" --> ADA recommendation is to "Treat Diabetes" * Goal a1C = <7% * Metformin should be started at the time type 2 diabetes is diagnosed unless there are contraindications. Metformin is effective and safe, is inexpensive, and may reduce risk of cardiovascular events and . * B12 supplementation may be necessary with prison metformin use * FDA has revised the label for metformin to reflect its safety in patients with eGFR 30 mL/min or above * Recommend starting: Metformin XR 500mg PO daily with evening meal. Typically the XR formulation of metformin is better tolerated than the immediate release formulation. Continue to titrate metformin dosing upwards as recommended. Dosage increases should be made in increments of 500 mg weekly, up to 2,000 mg/day PO, given in divided doses. Doses above 2000 mg/day may be better tolerated if divided and given 3 times per day with meals. Max: 2,550 mg/day PO, in divided doses * Support Patient Self-Management * Healthy Lifestyle (diet, exercise, and smoking cessation) * Disease self-management (SMBG) * Prevention of complications (BP, Lipid goals, Immunizations) * Consider outpatient Diabetes Self-Management Education & Support
--- NOTE | 2021-04-19 16:30 | Discharge Summary ---
Date of Service April 19, 2021 Admission HPI Per Admitting Provider This is a 51-year-old male with past medical history significant for hypertension, morbid obesity, chronic kidney disease stage III, chews tobacco, history of Lyme disease, who presents with shortness of breath and found to be COVID positive. The patient states he is having symptoms since about last Friday, about 1 week ago, with fever, cough, feeling weak, poor appetite. Denies any shortness of breath or chest pain. No headaches, no abdominal pain, no nausea, no diarrhea or constipation. He went to [facility] on 04/11/2021 and he seems to be exposed because his daughter had COVID . In the [facility], he was saturating 88% to 99% and he was advised to come to the ER. In the ER, he was saturating in the low 90s and on oxygen 3 liters, he is saturating okay. He is hemodynamically stable. Afebrile here. Denies any blurred visions, no earache, no runny nose, no sore throat, no difficulty swallowing. No loss of sense of smell or taste. Normal bladder movements. Admission Exam Per Admitting Provider GENERAL: The patient is morbidly obese, not in acute distress. VITAL SIGNS: Temperature 36.5, pulse 69, respiratory rate 24, blood pressure 103/68, oxygen was 90% on room air, currently 95% on 3 liters. HEENT: Pupils equal, round and reactive to light. Oral mucosa moist. NECK: No JVD, no neck masses. CARDIOVASCULAR: S1 and S2 heard. Regular rate and rhythm. No murmur, no gallop. RESPIRATORY SYSTEM: Normal AP diameter. No accessory muscle use. No wheezing, no crackles. ABDOMEN: Soft, bowel sounds present, nontender, no distention. CENTRAL NERVOUS SYSTEM: Cranial nerves II-XII grossly intact, nonfocal. EXTREMITIES: No edema, no erythema. Principal Diagnosis covid pneumonia Discharge Exam General: A&Ox3 HENT: NCAT, MMM, EOMI Eyes: PERRLA Neck: Supple, normal range of motion CVS: normal rate and rhythm Resp: b/l coarse breath sounds Abdomen: Soft, ND/NT, +BS Extremities: No c/c/e Neuro: face symmetric, strength grossly equal, no focal deficit Skin: warm and dry, no rashes/lesions/errythema MSK: normal ROM, no joint swelling/erythema Discharge Data Allergies Allergy/AdvReac Type Severity Reaction Status Date / Time Unable to Assess Allergy Unverified 04/11/21 20:42 Consultations 04/11/21 21:02 ED Decision to Admit Stat 04/14/21 08:07 Consult Pulmonology Routine Diabetes Follow up Diabetes Follow-up Needed for Newly Diagnosed Diabetes Hospital Course (1) Pneumonia due to COVID-19 virus: (2) Acute on chronic renal insufficiency: (3) Newly diagnosed diabetes: #. 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 04/14 CXR showed worsening bilateral pneumonia. Troponin was negative. Appreciate pulmonary medicine input: Recommends proning as tolerated, incentive spirometry, Decadron. CPAP during the night. Maintain SaO2 between 92 to 94% Patient completed a course of remdesivir/Decadron. On the day of discharge patient was doing okay. At rest patient was on room air. Patient was requiring 2 L of oxygen with ambulation. He was discharged in 2 L per. #. 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 Likely sleep apnea Per patient, he has never been diagnosed with sleep apnea in the past nor with heart failure. Given his BMI and circumstances, likely sleep apnea, patient advised to follow- up with PCP for sleep study as an outpatient Continue with CPAP nightly for now and as needed Lasix. #. Acute on chronic renal insufficiency: resolved Stage III CKD at baseline base creat from 2017 is 1.5. #. Newly diagnosed diabetes mellitus #. Obesity 04/13 A1c 6.6, patient endorses family member having diabetes type 2 Patient was discharged on Metformin. Follow-up with PCP. Total Time Total Time Spent Total Time Spent (In Minutes): 25 Discharge Plan Discharge Items Patient Disposition: Home - Self-Care Reason For Visit: SOB Discharge Diagnosis: COVID 19 Activity: Resume your previous activity Non-emergency contact: Primary Care Provider Call non-emergency contact if: your symptoms worsen Follow-up/Referrals: Hans Mosher MD [Primary Care Provider] - 04/27/21 10:00 am Diet: Regular Addtl Attending Provider Instructions: Follow-up with your primary care physician. You will need to be evaluated by sleep study clinic for sleep apnea evaluation. You were diagnosed with diabetes mellitus type 2. Please start taking Metformin 500 mg twice daily. Pending Studies at Discharge: No Stand-Alone Forms: My [facility], Smoking Cessation Medications and DC Order Prescriptions: New metformin 500 mg tablet 500 mg PO BID Qty: 30 RF: 0 (DME) blood-glucose meter [Accu-Chek Guide Glucose Meter] Misc See Rx Instructions .Route Qty: 1 RF: 0 Continued hydrochlorothiazide 25 mg tablet 25 mg PO DAILY RF: 0 lisinopril 40 mg tablet 40 mg PO DAILY RF: 0 Discharge Orders: Discharge Order (Routine); Ordered 04/19/21 Ordered By: Zuly Chanel/Other Patient Handouts: A1C, High Blood Sugar (Hyperglycemia), Hypoglycemia (Low Blood Sugar), How to Check Your Blood Sugar, Exercise to Manage Your Blood Sugar, Diabetes: The Benefits of Exercise, Diabetes: Meal Planning, Type 2 Diabetes Admission Data Admit Date/Time: 04/12/21 00:40 Attending Provider: Zuly Dhaliwal Admit Provider: Ochoa Garcia Primary Care Provider: Hans Mosher Other Providers: Ochoa Garcia ; Uriel Madsen Other Interventions: Discharge Summary Assessment (RN) Last Done: 04/19/21 16:38
== END 2021-04-19 17:40 | disposition home or self-care (01) | DRG 177 ==
LOC: ED 17:34 → SUATTDRO 04-12 00:40 → 2E 04-12 00:40